=== PATIENT | male | born 1960 | race Caucasian/White ===

== ENCOUNTER 2020-01-08 12:54 | Outpatient (REF) | payer OTHER, SELFPAY ==
--- NOTE | 2020-01-08 13:02 | XR_ITS ---
EXAMINATION: XR CERVICAL SPINE CLINICAL INFORMATION: Cervical pain and paresthesia. COMPARISON: None TECHNIQUE: Five views of the cervical spine were obtained. FINDINGS: There is mild straightening of the cervical lordosis. There is a ventral plate and screws from C4, C5 and C6 vertebra with intervening disc prosthesis for ventral fusion. The rest of the disc heights, vertebral heights and alignment are normal. The neural foramina are mildly narrowed from C3-C4 through C6-C7 disc levels bilaterally secondary to uncovertebral hypertrophic changes. The prevertebral soft tissues are normal. XR/XR cervical spine 4V IMPRESSION: 1. C5-C6 and C6-C7 ventral fusion from ventral plate and screws and disc prosthesis. 2. Mild bilateral narrowing of neural foramina as described above.
== END 2020-01-08 12:55 | disposition home or self-care (01) ==
LOC: HO.XRAY 12:54
PROVIDERS: PCP Internal Medicine; Visit Provider Internal Medicine
DX: M54.2 Cervicalgia (principal); R20.2 Paresthesia of skin
CPT/HCPCS: 72050

== ENCOUNTER → 2020-01-14 15:24 | Outpatient (BNVA) | payer OTHER, SELFPAY | PROVIDERS: PCP Nurse Practitioner; Referring Provider Nurse Practitioner; Visit Provider Physician Assistant | DX: Z01.818 Encounter for other preprocedural examination (principal) | CPT/HCPCS: 99202 ==

== ENCOUNTER 2020-03-22 12:04 | Day surgery (SDC) | payer OTHER, SELFPAY ==
[2020-03-16 13:48] VITALS: BMI 27.3
--- NOTE | 2020-03-19 10:37 | P.CONAN_ITS ---
HPI - Anesthesia Eval Consult details Narrative: 59yo M for Colonoscopy [facility] Past Medical History Medical History Abnormal myocardial perfusion study Atherosclerotic cardiovascular disease Back pain Diabetes HTN (hypertension) Family History Family History Father History of dementia Mother No problems noted. Surgical History Surgical History History of colonoscopy History of operative procedure on lumbosacral spinal structure Hx of cervical spine surgery (~2019) Hx of elbow surgery Social History Social History Are you a primary critical care nurse specialist to a significant other at home: No Do you presently have visiting nurse or other home services: No Alcohol intake: never Smoking Status: Former smoker Tobacco Type: Cigarette Smoking Quit Date: 4 yrs ago Use of substances other than those prescribed or required for medical reasons: No Have you been hit, kicked, punched, or otherwise hurt by someone within the past year? If so, by whom?: No Advance Directives: No Advance Directives Information Provided: No Advance Directives on File: No Recently lost weight without trying: No Meds Allergies Allergy/AdvReac Type Severity Reaction Status Date / Time insulin aspart Allergy Intermediate ITCHING Verified 03/22/20 12:18 [From NOVOLOG U-100 INSULIN ASPART] insulin detemir Allergy Intermediate ITCHING Verified 03/22/20 12:18 [From LEVEMIR U-100 INSULIN] lidocaine Allergy Intermediate Rash Verified 03/22/20 12:18 aspirin [ASA] Allergy Unknown wheezing, Verified 03/22/20 12:18 chest tightness, wheezing tetanus and diphtheria Allergy Unknown SWELLING, Verified 03/22/20 12:18 toxoids REDNESS [TETANUS AND DIPHTHERIA TOXOIDS] Home Medications Medication Instructions Recorded Confirmed Type amlodipine 5 mg tablet 5 mg PO DAILY 01/14/20 03/16/20 History atorvastatin 40 mg tablet 40 mg PO DAILY 01/14/20 03/16/20 History bupropion HCl 300 mg 24 hr tablet, 300 mg PO QAM 01/14/20 03/16/20 History extended release clopidogrel 75 mg tablet 75 mg PO DAILY 01/14/20 03/16/20 History gabapentin 600 mg tablet 600 mg PO DAILY 01/14/20 03/16/20 History insulin glargine 100 unit/mL 25 unit SUBCUT BEDTIME 01/14/20 03/16/20 History subcutaneous solution insulin lispro 100 unit/mL 8 unit SUBCUT TID 01/14/20 03/16/20 History subcutaneous solution losartan 100 mg tablet 100 mg PO DAILY 01/14/20 03/16/20 History metoprolol succinate 25 mg 37.5 mg PO BID 01/14/20 03/16/20 History tablet,extended release 24 hr prazosin 2 mg capsule 2 mg PO BEDTIME 01/14/20 03/16/20 History tramadol 50 mg tablet 50 mg PO TID 01/14/20 03/16/20 History Exam Exam Date and Time: March 19, 2020 1037 Height,Weight and Vital Signs: Height 5 ft 8 in Weight 81.647 kg Narrative Narrative: Per 11/26/19 Cardiology office visit note: EKG 2019: [employer] RBBB, LVH MIBI: Low risk, mild intensity inferobasal, basal inferoseptal and basal inferolateral ischemia. Echo: nml LVEF without any evidence of structural heart disease Coronary CTA: significant calcification in LAD near 1st diagonal takeoff. Suspected less than 50% narrowing. No occlusion. No disease elsewhere Stable CAD. Allergy to asa so med with Plavix. Assessment and Plan Assessment Anesthesia Assessment: Chart Reviewed
[2020-03-22 12:22] VITALS: BP 129/59; PULSE 57; RESP 16; TEMP 36.8; O2SAT 98
[2020-03-22 12:31] LABS: Glucose, Whole Blood 113 mg/dL (60-115)
--- NOTE | 2020-03-22 12:31 | MHC.SHP ---
Pre-Procedural Eval Section B Chief Complaint: screening Relevant Family History (Specify if Yes): No Relevant Social History: None Present Medications: see Short Stay Collaborative assessment Medical History: Significant History (Abnormal myocardial perfusion study Atherosclerotic cardiovascular disease Back pain Diabetes HTN (hypertension)) History of Previous Operations: Relevant previous surgery/procedure and date(s) (History of colonoscopy History of operative procedure on lumbosacral spinal structure Hx of cervical spine surgery (~2019) Hx of elbow surgery) Allergies: Allergies Allergy/AdvReac Type Severity Reaction Status Date / Time insulin aspart Allergy Intermediate ITCHING Verified 03/22/20 12:18 [From NOVOLOG U-100 INSULIN ASPART] insulin detemir Allergy Intermediate ITCHING Verified 03/22/20 12:18 [From LEVEMIR U-100 INSULIN] lidocaine Allergy Intermediate Rash Verified 03/22/20 12:18 aspirin [ASA] Allergy Unknown wheezing, Verified 03/22/20 12:18 chest tightness, wheezing tetanus and diphtheria Allergy Unknown SWELLING, Verified 03/22/20 12:18 toxoids REDNESS [TETANUS AND DIPHTHERIA TOXOIDS] Review of Systems Sugical H&P ROS: Negative: Constitution, Cardiovascular, Respiratory, Neurological, Psychiatric, Hem-Onc, Allergic/Immunologic, Gastrointestinal, Genitourinary, Musculoskeletal, Integumentary, Endocrine and Eyes/Ears/Nose/Throat Exam Surgical H&P Exam: Normal: HEENT, Normal: Heart, Normal: Lungs, Normal: Extremities, Normal: Abdomen, Normal: Skin and Normal: Neurological Plan Diagnosis/Plan: Unchanged I have reviewed the history and physical and performed a pertinent physical examination on my patient. No changes have occurred unless specified.
--- NOTE | 2020-03-22 12:32 | PM.OP ---
Brief Operative Note Date of Service: 03/22/20 Pre-op diagnosis: colon screen Post-op diagnosis: same Procedure: see op note Surgeon: Jacquelyn Barroso MD Anesthesia: MAC Estimated blood loss (mL): 0 Condition: stable Disposition: PACU
--- NOTE | 2020-03-22 12:32 | W.PM.OPN ---
Operative Note Operative Note Date of Service: 03/22/20 Narrative: Operative Information Procedure Description: Colonoscopy COLONOSCOPY Instrument: Olympus variable stiffness pediatric scope 190L Colonoscopy Monitoring: Vital signs and clinical assessment, continuous EKG monitoring, Pulse oximetry, Carbon Dioxide monitoring and blood pressure monitoring were done throughout the procedure. Colon withdrawal time was 13 minutes. Procedure: The patient was placed in the left lateral decubitis position and pre-procedure medications were administered. After a digital rectal examination of the ano-rectum, the video colonoscope was inserted into the rectum and advanced through the colon to the cecum/TI. The colonoscope was slowly withdrawn in a retrograde panoramic fashion and the colon mucosa was carefully examined including a retroflexed view of the rectum. Findings and interventions are described below. Procedure Difficulty:easy Findings: Terminal Ileum-normal Cecum:diminutive polyp lesion 3-5 mm removed with forceps, otherwise normal Ascending Colon: normal Transverse Colon -normal Descending Colon:normal Sigmoid Colon: mild diverticulosis otherwise normal Rectum: Retroflexion with small internal hemorrhoids, grade I Anorectum - normal Colon preparation: [place] Bowel Preparation Scale Right colon; 3 Transverse colon: 3 Left colon; 3 (0 = Unprepared colon segment with mucosa not seen due to solid stool that cannot be cleared. 1 = Portion of mucosa of the colon segment seen, but other areas of the colon segment not well seen due to staining, residual stool and/or opaque liquid. 2 = Minor amount of residual staining, small fragments of stool and/or opaque liquid, but mucosa of colon segment seen well. 3 = Entire mucosa of colon segment seen well with no residual staining, small fragments of stool or opaque liquid) Impression and Post Procedure Diagnosis: polyp internal hemorrhoids diverticular disease Plan: High fiber diet leaflet Avoid straining at stool, epsom salts and sitz bath, anusol supps or cream prn Repeat Colonoscopy in 7-10 years or earlier if clinically indicated Above findings were reviewed with the patient and relevant handouts were provided if indicated.
--- NOTE | 2020-03-22 12:36 | HO.ANESPROP2 ---
[facility] Past Medical History Medical History Abnormal myocardial perfusion study Atherosclerotic cardiovascular disease Back pain Diabetes HTN (hypertension) Family History Family History Father History of dementia Mother No problems noted. Surgical History Surgical History History of colonoscopy History of operative procedure on lumbosacral spinal structure Hx of cervical spine surgery (~2019) Hx of elbow surgery Social History Social History Are you a primary lawn care professional to a significant other at home: No Do you presently have visiting nurse or other home services: No Alcohol intake: never Smoking Status: Former smoker Tobacco Type: Cigarette Smoking Quit Date: 4 yrs ago Use of substances other than those prescribed or required for medical reasons: No Have you been hit, kicked, punched, or otherwise hurt by someone within the past year? If so, by whom?: No Advance Directives: No Advance Directives Information Provided: No Advance Directives on File: No Recently lost weight without trying: No Meds Allergies Allergy/AdvReac Type Severity Reaction Status Date / Time insulin aspart Allergy Intermediate ITCHING Verified 03/22/20 12:18 [From NOVOLOG U-100 INSULIN ASPART] insulin detemir Allergy Intermediate ITCHING Verified 03/22/20 12:18 [From LEVEMIR U-100 INSULIN] lidocaine Allergy Intermediate Rash Verified 03/22/20 12:18 aspirin [ASA] Allergy Unknown wheezing, Verified 03/22/20 12:18 chest tightness, wheezing tetanus and diphtheria Allergy Unknown SWELLING, Verified 03/22/20 12:18 toxoids REDNESS [TETANUS AND DIPHTHERIA TOXOIDS] Home Medications Medication Instructions Recorded Confirmed Type amlodipine 5 mg tablet 5 mg PO DAILY 01/14/20 03/16/20 History atorvastatin 40 mg tablet 40 mg PO DAILY 01/14/20 03/16/20 History bupropion HCl 300 mg 24 hr tablet, 300 mg PO QAM 01/14/20 03/16/20 History extended release clopidogrel 75 mg tablet 75 mg PO DAILY 01/14/20 03/16/20 History gabapentin 600 mg tablet 600 mg PO DAILY 01/14/20 03/16/20 History insulin glargine 100 unit/mL 25 unit SUBCUT BEDTIME 01/14/20 03/16/20 History subcutaneous solution insulin lispro 100 unit/mL 8 unit SUBCUT TID 01/14/20 03/16/20 History subcutaneous solution losartan 100 mg tablet 100 mg PO DAILY 01/14/20 03/16/20 History metoprolol succinate 25 mg 37.5 mg PO BID 01/14/20 03/16/20 History tablet,extended release 24 hr prazosin 2 mg capsule 2 mg PO BEDTIME 01/14/20 03/16/20 History tramadol 50 mg tablet 50 mg PO TID 01/14/20 03/16/20 History Exam Exam Date and Time: March 22, 2020 1236 Height,Weight and Vital Signs: Height 5 ft 8 in Weight 81.647 kg Last Vital Signs Temp 98.2 F 03/22/20 12:22 Pulse 57 03/22/20 12:22 Resp 16 03/22/20 12:22 BP 129/59 L 03/22/20 12:22 Pulse Ox 98 03/22/20 12:22 Pertinent Lab Results Pertinent Lab Results: Laboratory Tests 03/22/20 12:28 POC Glucose 113 Airway Mallampati Class: II TM Dist: >3cm Neck ROM: Full Heart: RRR Lungs: CTA
[2020-03-22] MEDS: Lactated Ringers 1,000 ML 100 ML IVCONT (12:37)
[2020-03-22 13:23] VITALS: BP 102/44; PULSE 60; RESP 16; TEMP 36.7; O2SAT 96
--- NOTE | 2020-03-22 13:25 | HO.POSTANES ---
Post Anesthesia Evaluation Post Anesthesia Evaluation Vital Signs: Vital Signs Temp Pulse Resp BP Pulse Ox 03/22/20 12:22 98.2 F 57 16 129/59 L 98 Anesthesia: Monitored Mental Status: Awake Pain Control: Satisfactory Nausea/Vomiting: None Hydration: Adequate Anesthesia-Related Issues: No Anes. Related Issues
== END 2020-03-22 14:21 | disposition home or self-care (01) ==
PROVIDERS: PCP Internal Medicine; Visit Provider Internal Medicine Gastroenterology
PROC: 0DJD8ZZ Inspection of Lower Intestinal Tract, Via Natural or Artificial Opening Endoscopic (ICD-10-PCS; CPT 45378; principal; 2020-03-22 13:30)
DX: Z12.11 Encounter for screening for malignant neoplasm of colon (principal); D12.0 Benign neoplasm of cecum; K57.30 Diverticulosis of large intestine without perforation or abscess without bleeding; K64.0 First degree hemorrhoids; I10 Essential (primary) hypertension; I25.10 Atherosclerotic heart disease of native coronary artery without angina pectoris; E11.9 Type 2 diabetes mellitus without complications; Z79.4 Long term (current) use of insulin; Z79.899 Other long term (current) drug therapy; Z87.891 Personal history of nicotine dependence; Z88.7 Allergy status to serum and vaccine
CPT/HCPCS: 45380; 82947; 88305

== ENCOUNTER → 2020-05-31 09:03 | Outpatient (BNVA) | payer OTHER, SELFPAY | PROVIDERS: PCP Internal Medicine; Visit Provider Internal Medicine | DX: I25.10 Atherosclerotic heart disease of native coronary artery without angina pectoris (principal); I10 Essential (primary) hypertension; E11.8 Type 2 diabetes mellitus with unspecified complications | CPT/HCPCS: 93005; 99212 ==

== ENCOUNTER → 2020-12-06 08:55 | Outpatient (BNVA) | payer OTHER, SELFPAY | PROVIDERS: PCP Internal Medicine; Referring Provider Internal Medicine; Visit Provider Internal Medicine | DX: I25.10 Atherosclerotic heart disease of native coronary artery without angina pectoris (principal); I10 Essential (primary) hypertension; E11.8 Type 2 diabetes mellitus with unspecified complications | CPT/HCPCS: 99212 ==

== ENCOUNTER 2021-06-22 08:00 | Outpatient (RCR) | payer OTHER, SELFPAY | END 2021-06-23 11:08 | disposition home or self-care (01) | LOC: HO.PTCHIC 08:00 | PROVIDERS: PCP Internal Medicine; Visit Provider Internal Medicine | DX: M54.32 Sciatica, left side (principal) | CPT/HCPCS: 97110; 97140; 97162 ==

== ENCOUNTER → 2021-06-23 09:43 | Outpatient (BNVA) | payer OTHER, SELFPAY | PROVIDERS: PCP Internal Medicine; Referring Provider Internal Medicine; Visit Provider Internal Medicine | DX: I25.10 Atherosclerotic heart disease of native coronary artery without angina pectoris (principal); E11.9 Type 2 diabetes mellitus without complications; I10 Essential (primary) hypertension; Z79.02 Long term (current) use of antithrombotics/antiplatelets; Z79.4 Long term (current) use of insulin; Z79.899 Other long term (current) drug therapy | CPT/HCPCS: 93005; 99212 ==

== ENCOUNTER → 2021-08-29 13:50 | Outpatient (BNVA) | payer OTHER, SELFPAY | PROVIDERS: PCP Internal Medicine; Visit Provider Anesthesiology | DX: M46.1 Sacroiliitis, not elsewhere classified (principal); M53.3 Sacrococcygeal disorders, not elsewhere classified; M47.817 Spondylosis without myelopathy or radiculopathy, lumbosacral region; G89.4 Chronic pain syndrome | CPT/HCPCS: 99202 ==

== ENCOUNTER 2021-09-27 06:07 | Outpatient (REF) | payer OTHER, SELFPAY ==
--- NOTE | ~2021-09-27 | FL_ITS ---
EXAMINATION: XR FLUOROSCOPY WITH IMAGES CLINICAL INFORMATION: Left SI joint injection. Sacroiliitis. COMPARISON: None. TECHNIQUE: Fluoroscopy performed by Dr. Sharan Carrillo. Fluoroscopy time: 0.1 minute. Cumulative Dose: 4.94 mGy. DAP: 1.34 Gy-cm2. Images: 1. FINDINGS: There is a radiopaque needle projecting over the left sacroiliac joint with expansion of contrast in this region. FL/FL guidance in treatment room IMPRESSION: Fluoroscopic guidance for left sacroiliac joint injection. Please refer to procedural report for further information.
== END 2021-09-27 06:08 | disposition home or self-care (01) ==
LOC: HO.RADIR 06:07
PROVIDERS: Visit Provider Anesthesiology
DX: M46.1 Sacroiliitis, not elsewhere classified (principal); M53.3 Sacrococcygeal disorders, not elsewhere classified; M47.817 Spondylosis without myelopathy or radiculopathy, lumbosacral region; G89.4 Chronic pain syndrome
CPT/HCPCS: 27096; J3300

== ENCOUNTER → 2021-09-29 08:02 | Outpatient (BNVA) | payer OTHER, SELFPAY | PROVIDERS: PCP Internal Medicine; Visit Provider Anesthesiology | DX: M46.1 Sacroiliitis, not elsewhere classified (principal); M53.3 Sacrococcygeal disorders, not elsewhere classified; M47.817 Spondylosis without myelopathy or radiculopathy, lumbosacral region; G89.4 Chronic pain syndrome | CPT/HCPCS: Q3014 ==

== ENCOUNTER 2021-10-25 06:25 | Outpatient (REF) | payer OTHER, SELFPAY ==
--- NOTE | ~2021-10-25 | FL_ITS ---
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 COMPARISON: MRI of the lumbar spine dated 08/03/2021. TECHNIQUE: Fluoroscopy performed by Dr. Carrillo. Fluoroscopy time: 0.4 minutes. Cumulative Dose: 7.34 mGy. DAP: 2.0 Gy-cm2. Images: 4. FL/FL guidance in treatment room FINDINGS/IMPRESSION: Final images show needles in place on the right at the level the facets at L3, L4 and L5. Please refer to the procedure report for more detailed findings.
== END 2021-10-25 06:26 | disposition home or self-care (01) ==
LOC: HO.RADIR 06:25
PROVIDERS: Visit Provider Anesthesiology
DX: M47.816 Spondylosis without myelopathy or radiculopathy, lumbar region (principal); M46.1 Sacroiliitis, not elsewhere classified; M53.3 Sacrococcygeal disorders, not elsewhere classified; G89.4 Chronic pain syndrome
CPT/HCPCS: 64493; 64494; 64495

== ENCOUNTER → 2021-10-27 10:25 | Outpatient (BNVA) | payer OTHER, SELFPAY | PROVIDERS: PCP Internal Medicine; Visit Provider Anesthesiology | DX: M46.1 Sacroiliitis, not elsewhere classified (principal); M53.3 Sacrococcygeal disorders, not elsewhere classified; M47.817 Spondylosis without myelopathy or radiculopathy, lumbosacral region; G89.4 Chronic pain syndrome | CPT/HCPCS: Q3014 ==

== ENCOUNTER 2021-11-16 09:17 | Outpatient (REF) | payer OTHER, SELFPAY ==
[2021-11-16 09:55] LABS: Binax Internal Control QC Valid; Binax Now Covid-19 Ag Positive (Negative)
== END 2021-11-16 09:18 | disposition home or self-care (01) ==
LOC: HO.HMGCLDS 09:17
PROVIDERS: PCP Internal Medicine; Visit Provider Nurse Practitioner Family
DX: R09.81 Nasal congestion (principal); Z20.822 Contact with and (suspected) exposure to COVID-19
CPT/HCPCS: 87811; C9803

== ENCOUNTER 2021-12-27 09:13 | Day surgery (SDC) | payer OTHER, SELFPAY ==
--- NOTE | ~2021-12-27 | FL_ITS ---
EXAMINATION: XR FLUOROSCOPY WITH IMAGES CLINICAL INFORMATION: Lumbar L4-L5 temporary PCN advanced COMPARISON: October 25, 2021 TECHNIQUE: Fluoroscopy performed by Dr. Sharan Carrillo. Fluoroscopy time: 0.1 minutes. Cumulative Dose: 3.78 mGy. DAP: 1.03 Gycm2. Images: 1. FINDINGS: Wire is seen overlying the left L5 vertebral body. FL/FL guidance in OR IMPRESSION: Intraoperative fluoroscopy for pain management procedure.
[2021-12-27 09:40] VITALS: BMI 27.3
[2021-12-27 09:47] VITALS: BP 127/103; PULSE 52; RESP 16; TEMP 37; O2SAT 96
--- NOTE | 2021-12-27 09:47 | PC.NURSE ---
patient own glucometer states 92. asymptomatic but feels it will start to drop more so tammy netta was given. states he is symptomatic when its around 80.
--- NOTE | 2021-12-27 11:28 | P.HPSUR_ITS ---
Pre-Procedural Eval Section A Date of Service: 12/27/21 The patient is an INPATIENT: No Changes since office visit: Yes Changes in Medication and Yes Patient answered all questions The History & Physical has been completed within 30 days and I have reviewed it.: No Section B Chief Complaint: Spondylosis without myelopathy or radiculopathy, l Details of Present Illness: as above Relevant Family History (Specify if Yes): No Relevant Social History: None Present Medications: None Medical History: No relevant PMH History of Previous Operations: No relevant previous surgery Allergies: Allergies Allergy/AdvReac Type Severity Reaction Status Date / Time insulin aspart Allergy Intermediate ITCHING Verified 11/16/21 08:35 [From NOVOLOG U-100 INSULIN ASPART] insulin detemir Allergy Intermediate ITCHING Verified 11/16/21 08:35 [From LEVEMIR U-100 INSULIN] lidocaine Allergy Intermediate Rash Verified 11/16/21 08:35 aspirin [ASA] Allergy Unknown wheezing, Verified 11/16/21 08:35 chest tightness, wheezing tetanus and diphtheria Allergy Unknown SWELLING, Verified 11/16/21 08:35 toxoids REDNESS [TETANUS AND DIPHTHERIA TOXOIDS] Review of Systems Sugical H&P ROS: Negative: Constitution, Cardiovascular, Respiratory, Neurological, Psychiatric, Hem-Onc, Allergic/Immunologic, Gastrointestinal, Genitourinary, Musculoskeletal, Integumentary, Endocrine and Eyes/Ears/Nose/Throat Exam Surgical H&P Exam: Normal: HEENT, Normal: Heart, Normal: Lungs, Normal: Ex tremities, Normal: Abdomen, Normal: Skin and Normal: Neurological Plan Diagnosis/Plan: Unchanged I have reviewed the history and physical and performed a pertinent physical examination on my patient. No changes have occurred unless specified.
--- NOTE | 2021-12-27 12:06 | PM.OP ---
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
--- NOTE | 2021-12-27 12:13 | P.OP_ITS ---
Operative Note Operative Note Date of Service: 12/27/21 Narrative: ?Percutaneous implantation of peripheral nerve stimulation Sprint system. After the risks, benefits and alternatives were discussed with the patient and informed consent was obtained, patient was placed in the prone position and padded to foster comfort. Time out was performed delineating correct site and side of the procedure , name and of the patient, patient participated in time out procedure. The patient decided to start his treatment with right side stimulation where his pain is most severe. Sterily draped C-arm was brought over the operating field and clear picture of the L5 lamina on the left was delineated on the screen. The upper central portion of the lamina was chosen as a target of the needle tip incertion . After identifying and marking the intended target, the skin around the planned entry point and the subcutaneous tissues were injected with local anesthetic forming skin wheal.. A percutaneous sleeve and stimulating probe lead introduction system were assemb led, inserted and advanced through the skin wheal to the? point of interest under C-arm view in tunnel vision fashion, the introducer needle was delivered to a location in proximity to the nerve. Multiple stimulation parameters were used to deliver stimulation to the? nerve in concert with stimulating at multiple positions around the nerve. Nerve target acquisition was confirmed noting generation of? in the? corresponding to the nerve being stimulated. Various electrical parameter combinations were tested, and the lead location was adjusted (physically relocated) until the patient indicated? overlapping the distribution of the patient?s typical region of pain. The stimulating probe was removed from the introducer and a percutaneous lead was guided through the needle and delivered to a location in similar proximity to the nerve. Final location was verified with electrical stimulation. The introducer needle was removed, and the exposed end of the percutaneous lead was attached to an exte rnal stimulator unit. Various electrical parameter combinations were again tested until the patient indicated paresthesia or muscle tension overlapping the distribution of the patient?s typical region of pain. After confirming that lead impedance was in the normal range, the external unit was detached, the needle was removed, and the lead was anchored at the skin. The lead was threaded into the connector block and electrical continuity and desired patient response was confirmed. The connector block was attached to the external stimulator unit. The site was covered with a sterile occlusive dressing and an? image was taken to document final placement. Upon completion of the procedure the patient was taken outside the OR where he recovered uneventfully he went home without immediate complications.
[2021-12-27 12:16] VITALS: BP 136/66; PULSE 57; RESP 20; TEMP 36.1; O2SAT 97
== END 2021-12-27 12:49 | disposition home or self-care (01) ==
PROVIDERS: PCP Internal Medicine; Visit Provider Anesthesiology
PROC: (CPT 64555; principal; 2021-12-27 11:00)
DX: M47.816 Spondylosis without myelopathy or radiculopathy, lumbar region (principal); G89.4 Chronic pain syndrome; M53.3 Sacrococcygeal disorders, not elsewhere classified; M46.1 Sacroiliitis, not elsewhere classified; I11.9 Hypertensive heart disease without heart failure; E11.9 Type 2 diabetes mellitus without complications; Z88.8 Allergy status to other drugs, medicaments and biological substances; Z98.890 Other specified postprocedural states; Z87.891 Personal history of nicotine dependence; Z79.4 Long term (current) use of insulin; Z79.899 Other long term (current) drug therapy
CPT/HCPCS: 64555; C1778; J0690; J2795

== ENCOUNTER → 2022-01-02 11:43 | Outpatient (BNVA) | payer OTHER, SELFPAY | PROVIDERS: PCP Internal Medicine; Visit Provider Anesthesiology | DX: M46.1 Sacroiliitis, not elsewhere classified (principal); M53.3 Sacrococcygeal disorders, not elsewhere classified; M47.817 Spondylosis without myelopathy or radiculopathy, lumbosacral region; G89.4 Chronic pain syndrome | CPT/HCPCS: 99212 ==

== ENCOUNTER → 2022-03-01 10:01 | Outpatient (BNVA) | payer OTHER, SELFPAY | PROVIDERS: PCP Internal Medicine; Visit Provider Anesthesiology | DX: M46.1 Sacroiliitis, not elsewhere classified (principal); M53.3 Sacrococcygeal disorders, not elsewhere classified; M47.817 Spondylosis without myelopathy or radiculopathy, lumbosacral region; G89.4 Chronic pain syndrome | CPT/HCPCS: 99212 ==

== ENCOUNTER 2022-05-31 09:14 | Outpatient (REF) | payer OTHER, SELFPAY ==
--- NOTE | ~2022-05-31 | FL_ITS ---
EXAMINATION: FL UPPER GI SERIES CLINICAL INFORMATION: Dysphagia with solids cervical region. Patient notes symptoms since cervical fusion. COMPARISON: None TECHNIQUE: Upper GI series is performed using fluoroscopic evaluation in addition to multiple fluoroscopic spot views. The patient is imaged both upright and prone and using both thick and thin barium sulfate along with effervescent granules. Barium pill challenge also performed. Cine fluoroscopy also performed for cervical esophagus. Fluoroscopy time: 2.0 minutes DAP: 20.36 Gycm2 Fluoroscopic spot images: 42 (this includes cine fluoroscopy). FINDINGS: Timber Estimator view showed no gaseous dilatation of bowel or abnormal collections of gas. There is a small electronic device overlying the right lateral abdomen consistent with a glucose monitor. There has been prior cervical fusion C4-C6 with interbody bone grafts. The swallowing appears normal. No nasopharyngeal or laryngeal penetration or aspiration. No cervical web or diverticulum. No cervical achalasia. There is prompt passage of barium pill from mouth to stomach without delay. The thoracic esophagus shows normal motility. There is no ulceration or stricture or mucosal abnormality. With the prone Valsalva maneuver, there is some physiologic herniation at the esophagogastric junction but without overt hernia. Gastroesophageal reflux to the proximal thoracic esophagus is demonstrated during the water siphon test. Stomach shows borderline thickening of folds gastric fundus and proximal body. There is no nodularity or polyp or ulcer crater. No gastric outlet obstruction. The duodenal bulb is pliable. No ulceration or scarring. FL/FL upper GI series IMPRESSION: -Fluoroscopic evaluation swallowing unremarkable. No cervical web or diverticulum or achalasia. -Mild physiologic herniation esophagogastric junction during prone Valsalva maneuver. No overt hernia. -Gastroesophageal reflux during water siphon test to proximal thoracic esophagus. -Mild nonspecific gastric fold thickening fundus and proximal body. No polyp or ulcer crater.
== END 2022-05-31 09:15 | disposition home or self-care (01) ==
LOC: HO.XRAY 09:14
PROVIDERS: PCP Internal Medicine; Visit Provider Internal Medicine
DX: R13.11 Dysphagia, oral phase (principal)
CPT/HCPCS: 74240

== ENCOUNTER → 2022-06-28 09:42 | Outpatient (BNVA) | payer OTHER, SELFPAY | PROVIDERS: PCP Internal Medicine; Referring Provider Internal Medicine; Visit Provider Internal Medicine | DX: I25.10 Atherosclerotic heart disease of native coronary artery without angina pectoris (principal); I10 Essential (primary) hypertension; E11.8 Type 2 diabetes mellitus with unspecified complications | CPT/HCPCS: 93005; 99212 ==

== ENCOUNTER 2022-10-01 00:28 | Emergency (ER) | payer OTHER, SELFPAY ==
--- NOTE | ~2022-10-01 | XR_ITS ---
EXAMINATION: XR HAND, LEFT CLINICAL INFORMATION: Injury COMPARISON: None available. TECHNIQUE: PA, lateral, and oblique views of the left hand. FINDINGS: Fracture involving the mid to distal aspect of the distal phalanx of the fourth digit. Mildly comminuted. Not significantly displaced XR/XR hand LT 2V IMPRESSION: Fracture distal phalanx fourth digit
[2022-10-01 00:33] VITALS: BP 124/50; PULSE 62; RESP 16; TEMP 36.1; O2SAT 98; BMI 26.6
--- NOTE | 2022-10-01 01:07 | ED.EXTPRO ---
HPI - Extremity Problem General Chief complaint: Extremity Injury, Upper Stated complaint: finger inj, hit with a hammer Time Seen by Provider: 10/01/22 00:53 Source: patient Mode of arrival: ambulatory Limitations: no limitations History of Present Illness HPI Narrative: 62-year-old male who presents emergency department for evaluation of injury to his left ring finger. Patient states that he was using a - below hammer when he accidentally struck his left ring finger. He states he developed immediate pain. The injury occurred at 14:30 hours. Since then he has had increased pain with increased swelling and ecchymosis. He concerned about the swelling to his finger in the pain so he came to the emergency department for evaluation. Patient takes tramadol for chronic pain he states that this was not relieving his pain. He also took Tylenol with no relief. Related Data Home Medications Medication Instructions Recorded Confirmed atorvastatin 40 mg tablet (Lipitor) 40 mg PO DAILY 01/14/20 06/28/22 bupropion HCl 300 mg 24 hr tablet, 300 mg PO QAM 01/14/20 06/28/22 extended release (Wellbutrin XL) clopidogrel 75 mg tablet (Plavix) 75 mg PO DAILY 01/14/20 06/28/22 insulin glargine 100 unit/mL 25 unit subcut BEDTIME 01/14/20 06/28/22 subcutaneous solution (Lantus U-100 Insulin) insulin lispro 100 unit/mL 8 unit subcut TID 01/14/20 06/28/22 subcutaneous solution (Humalog U-100 Insulin) losartan 100 mg tablet 100 mg PO DAILY 01/14/20 06/28/22 prazosin 2 mg capsule 2 mg PO BEDTIME 01/14/20 06/28/22 tramadol 50 mg tablet 50 mg PO TID 01/14/20 06/28/22 metoprolol tartrate 25 mg tablet 37.5 mg PO BID 05/31/20 06/28/22 vilazodone 40 mg tablet 40 mg PO DAILY 05/31/20 06/28/22 bupropion HCl 150 mg 24 hr tablet, 150 mg PO QAM 09/27/21 06/28/22 extended release ferrous sulfate 325 mg (65 mg 325 mg PO Q OTHER DAY 09/27/21 06/28/22 iron) tablet (FeroSul) ketotifen fumarate 0.025 % (0.035 0 drp ophthalmic (eye) 09/27/21 06/28/22 %) eye drops prazosin 1 mg capsule 1 mg PO BEDTIME 09/27/21 06/28/22 amitriptyline 10 mg tablet 10 mg PO 06/28/22 06/28/22 gabapentin 100 mg capsule 100 mg PO TID 06/28/22 06/28/22 valacyclovir 500 mg tablet 500 mg PO BID 06/28/22 06/28/22 Previous Rx's Medication Instructions Recorded amlodipine 5 mg tablet 5 mg PO QAM #90 tabs 04/28/22 oxycodone 5 mg tablet 5 mg PO Q4H PRN pain #14 tabs 10/01/22 Allergies Allergy/AdvReac Type Severity Reaction Status Date / Time insulin aspart Allergy Intermediate ITCHING Verified 06/28/22 09:48 [From NOVOLOG U-100 INSULIN ASPART] insulin detemir Allergy Intermediate ITCHING Verified 06/28/22 09:48 [From LEVEMIR U-100 INSULIN] lidocaine Allergy Intermediate Rash Verified 06/28/22 09:48 aspirin [ASA] Allergy Unknown wheezing, Verified 06/28/22 09:48 chest tightness, wheezing tetanus and diphtheria Allergy Unknown SWELLING, Verified 06/28/22 09:48 toxoids REDNESS [TETANUS AND DIPHTHERIA TOXOIDS] Review of Systems Review of Systems: Yes all other systems are reviewed and are negative [facility] Past Medical History Medical History Abnormal myocardial perfusion study Atherosclerotic cardiovascular disease Back pain Diabetes Essential hypertension HTN (hypertension) Type 2 diabetes mellitus with unspecified complications Surgical History History of colonoscopy History of operative procedure on lumbosacral spinal structure Hx of cervical spine surgery (~2019) Hx of elbow surgery Family History Family History Father History of dementia Mother No problems noted. Social History Social History Are you a primary urgent care physician to a significant other at home: No Do you presently have visiting nurse or other home services: No Alcohol intake: never Patient Tobacco Use Status: Former Tobacco user Physical Exam Vital Signs: Vital Signs: Last Vital Signs Temp 97.0 F 10/01/22 00:33 Pulse 62 10/01/22 00:33 Resp 16 10/01/22 00:33 BP 124/50 L 10/01/22 00:33 Pulse Ox 98 10/01/22 00:33 O2 Del Method Room Air 10/01/22 00:33 BMI result Body Mass Index 26.6 Vital signs were normal General: Awake, alert, male patient, pleasant, cooperative in no distress Left hand: The tip of the left ring finger is ecchymotic with significant soft tissue swelling, there is a subungual hematoma, the patient has normal range of motion of the finger. No other fingers are involved. Medical Decision Making Medical Decision Making MDM Narrative: 62-year-old male who presents emergency department for evaluation of crush injury after accidentally striking his left ring finger with a heavy hammer at 14:30 hours. Exam did reveal significant soft tissue swelling, ecchymosis and subungual hematoma to the tip of the distal phalanx. X-rays did reveal a comminuted tuft fracture. The patient's middle, ring and pinky fingers were jessica-taped and an ortho glass splint apply my held in place with an Speedy wrap. After the splint was applied I did re-evaluate the patient his injured fingers facial immobilized and neurovascularly intact. Patient was advised to take Tylenol for pain and for pain not relieved by Tylenol he was prescribed oxycodone. He is advised to stop taking his tramadol wall taking oxycodone. Patient was advised to follow-up with the orthopedic surgeons for re-evaluation. Differential Diagnosis Differential Diagnoses: The differential diagnosis associated with the presentation includes Differential includes but is not limited to finger fracture, crush injury, contusion Independent Interpretation I performed an independent interpretation of an: Plain X-Ray Interpretation: My independent interpretation of the patient's left hand x-rays as follows: Comminuted fracture of the tuft of the distal phalanx of the left ring finger Radiology Impression Discussion of test interpretation with radiology: I have reviewed the radiologist's reading. Radiologist Impression: XR hand LT 2V Fracture involving the mid to distal aspect of the distal phalanx of the fourth digit. Mildly comminuted. Not significantly displaced IMPRESSION: Fracture distal phalanx fourth digit Dictated By:Mcconnell,Walter T MDSigned Discharge Plan Discharge Clinical Impression: Closed fracture of tuft of distal phalanx of left ring finger Patient Disposition: Home, Self-Care Instructions: Finger Fracture (ED) Additional Instructions: You broke/fracture the tip (tuft) of your left ring finger. Keep the splint on until you are re-evaluated by the orthopedic providers. Keep your hand elevated and apply ice for 15 minutes 4 to 6 times a day the next 3-4 days. This will decrease the swelling in your finger and help with the pain. Take Tylenol (acetaminophen) 500 mg pills, 2 pills every 6 hours as needed for pain. For pain not relieved byTylenol take oxycodone 5 mg pills, 1 pill every 4 hours as needed for pain. Do not drive or work while taking this medication since they can cause sleepiness. Oxycodone is a narcotic medication that can be addicting. If you are concerned about addiction you can ask the pharmacist for less pills or do not get this prescription filled. While your taking oxycodone do not take your tramadol Follow-up with your doctor in 2 days. Please return to the emergency department if your symptoms get worse or if you develop any symptoms that are concerning to you. Prescriptions: New oxycodone 5 mg tablet 5 mg PO Q4H PRN (Reason: pain) Qty: 14 0RF Rx Instructions: Patient may request partial fill; Partial Fill upon patient request. No Action amlodipine 5 mg tablet 5 mg PO QAM Qty: 90 3RF Viibryd 40 mg tablet 40 mg PO DAILY metoprolol tartrate 25 mg tablet 37.5 mg PO BID gabapentin 100 mg capsule 100 mg PO TID clopidogrel [Plavix] 75 mg tablet 75 mg PO DAILY losartan 100 mg tablet 100 mg PO DAILY prazosin 2 mg capsule 2 mg PO BEDTIME atorvastatin [Lipitor] 40 mg tablet 40 mg PO DAILY insulin lispro [Humalog U-100 Insulin] 100 unit/mL solution 8 unit subcut TID bupropion HCl [Wellbutrin XL] 300 mg tablet extended release 24 hr 300 mg PO QAM Lantus U-100 Insulin 100 unit/mL solution 25 unit subcut BEDTIME tramadol 50 mg tablet 50 mg PO TID bupropion HCl 150 mg tablet extended release 24 hr 150 mg PO QAM ferrous sulfate [FeroSul] 325 mg (65 mg iron) tablet 325 mg PO Q OTHER DAY prazosin 1 mg capsule 1 mg PO BEDTIME ketotifen fumarate 0.025 % (0.035 %) drops 0 drp ophthalmic (eye) amitriptyline 10 mg tablet 10 mg PO valacyclovir 500 mg tablet 500 mg PO BID Referrals: Audrey Nino MD [Physician] - 1 week (Comminuted fracture tuft of the distal phalanx of the left ring finger)
== END 2022-10-01 01:36 | disposition home or self-care (01) ==
PROVIDERS: Emergency Provider Emergency Medicine Emergency Medical Services; PCP Internal Medicine
DX: S62.635A Displaced fracture of distal phalanx of left ring finger, initial encounter for closed fracture (principal); Y29.XXXA Contact with blunt object, undetermined intent, initial encounter; Y93.9 Activity, unspecified; Y92.9 Unspecified place or not applicable; Y99.9 Unspecified external cause status; Z79.899 Other long term (current) drug therapy
CPT/HCPCS: 29130; 73120; 99284

== ENCOUNTER 2022-10-04 09:56 | Outpatient (REF) | payer OTHER, SELFPAY ==
[2022-10-04 14:50] LABS: MANUAL DIFF FLAG NO
[2022-10-04 14:57] LABS: Basophils Absolute Auto 0.1 X10*3/uL (0.0-0.2); Basophils Percent Auto 1.9 % (0-2); Eosinophils Absolute Auto 0.3 X10*3/uL (0.0-0.4); Hematocrit 36.7 % (42.0-52.0); Hemoglobin 12.3 g/dl (14.0-18.0); Imm Gran Abs Auto 0.01 X10*3/uL (0.00-0.03); Imm Gran Pct Auto 0.2 % (0.0-0.4); Immature Retic Fraction 7.5 % (2.3-13.4); Lymphocytes Absolute Auto 1.2 X10*3/uL (1.2-4.9); Lymphocytes Percent Auto 21.7 % (20-40); Mean Corpuscular HGB Conc 33.5 g/dl (31.0-36.0); Mean Corpuscular Hemoglobin 31.4 pg (27.0-33.0); Mean Corpuscular Volume 93.6 fL (80.0-98.0); Monocytes Absolute Auto 0.4 X10*3/uL (0.1-1.2); Monocytes Percent Auto 7.5 % (2-11); Neutrophils Absolute Auto 3.4 x10*3/uL (2.0-8.3); Neutrophils Percent Auto 62.7 % (45-73); Platelet Count 242 X10*3/uL (160-400); Red Blood Count 3.92 X10*6/uL (4.60-5.80); Red Cell Distribution Width 11.9 % (11.0-16.0); Retic HGB Equivalent 36.3 pg (30.0-35.0); Reticulocyte Percent 1.4 % (0.5-1.8); Reticulocytes Absolute 0.055 X10*6/uL (0.026-0.095); White Blood Count 5.3 X10*3/uL (4.8-10.8)
[2022-10-04 16:05] LABS: Iron 116 mcg/dL (45-160); Percent Iron Saturation 45 % (15-50); Total Iron Binding Capacity 257 mcg/dL (228-428); Unsaturated Iron Binding 141 ug/dL
[2022-10-04 16:27] LABS: Ferritin 168 ng/mL (20-250)
== END 2022-10-04 09:57 | disposition home or self-care (01) ==
LOC: HO.CHCLDS 09:56
PROVIDERS: Visit Provider Internal Medicine
DX: D64.9 Anemia, unspecified (principal)
CPT/HCPCS: 36415; 82728; 83540; 85025; 85045

== ENCOUNTER 2022-10-11 10:43 | Outpatient (AMB) | payer OTHER, SELFPAY ==
--- NOTE | 2022-10-11 11:01 | A.OFFVIS_ITS ---
Intake Vital Signs 10/11/22 11:10 Height 5 ft 8 in Weight 175 lb BMI 26.6 Intake Visit Reasons: FC- lt ring finger tuft fx Intake Note: Christian is a 62 year old right hand dominant male who presents today for an ER follow up of left ring finger fx, DOI 09/30/22. Patient reports hitting his finger with a hammer, he presented to [facility] where xrays were taken and placed in a splint. Currently discomfort/pain with accidentally bumping his hand. He continues to have bruising at the tip of finger. He does not feel numbness or tingling in finger but states hx of carpal tunnel in both hands. Allergies insulin aspart [From NOVOLOG U-100 INSULIN ASPART] Allergy (Intermediate, Verified 10/11/22 11:03) ITCHING insulin detemir [From LEVEMIR U-100 INSULIN] Allergy (Intermediate, Verified 10/11/22 11:03) ITCHING lidocaine Allergy (Intermediate, Verified 10/11/22 11:03) Rash aspirin [ASA] Allergy (Unknown, Verified 10/11/22 11:03) wheezing, chest tightness, wheezing tetanus and diphtheria toxoids [TETANUS AND DIPHTHERIA TOXOIDS] Allergy (Unknown, Verified 10/11/22 11:03) SWELLING, REDNESS HPI FC- lt ring finger tuft fx HPI Details 62-year-old right hand dominant male who presents to the office today for an ER follow-up of left ring finger injury s/p hitting his finger with hammer, 09/30/22. He was seen at ED where x-rays preformed and he was placed in a splint. He states he has pain and discomfort with accidently bumping his hand. He continues to have bruising at the tip of his finger. he denies any numbness or tingling. He has a history of CTS on bilateral hands. [facility] Medical History Abnormal myocardial perfusion study Atherosclerotic cardiovascular disease Back pain Diabetes Essential hypertension HTN (hypertension) Type 2 diabetes mellitus with unspecified complications Surgical History History of colonoscopy History of operative procedure on lumbosacral spinal structure Hx of cervical spine surgery (~2019) Hx of elbow surgery Family History Father History of dementia Mother No problems noted. 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 He does have a subungual hematoma. There is no open wound or laceration. He can fully flex and extend the finger. NVI. Office Procedures Fracture Care Fracture Billing Code: Fracture Billing Code Results Reviewed Results Reviewed: X-rays of the left hand obtained on October 01 at ED show a non-displaced tuft fracture. Assessment & Plan Assessment & Plan (1) Closed fracture of tuft of distal phalanx of left ring finger: Code(s): S62.635A - Displaced fracture of distal phalanx of left ring finger, initial encounter for closed fracture Plan He can increase activity as tolerated. I did give him a finger splint to wear for comfort to avoid any type of repetitive impact to that finger to allow for healing. He does not need to follow-up unless symptoms persist or worsen. He can see us back as needed. Patient Instructions: Scribed for Juan Ferro PA-C, by Radames Osborne biomedical manager, on 10/11/2022 at 10:45 AM EST. I, Juan Ferro PA-C, have personally reviewed and agree with the information entered by the scribe. Coding Level of Care Code New Pt Level 3 (55249) Diagnoses Closed fracture of tuft of distal phalanx of left ring finger S62.635A CPT Codes Fracture Care - Fracture Billing Code: Fracture Billing Code ([id number])
[2022-10-11 11:10] VITALS: BMI 26.6
== END 2022-10-11 11:44 | disposition home or self-care (01) ==
PROVIDERS: PCP Internal Medicine; Visit Provider Physician Assistant
DX: S62.635A Displaced fracture of distal phalanx of left ring finger, initial encounter for closed fracture (principal)
CPT/HCPCS: 26750; 99203

== ENCOUNTER → 2022-10-11 10:43 | Outpatient (BNVA) | payer OTHER, SELFPAY | PROVIDERS: PCP Internal Medicine; Visit Provider Physician Assistant | DX: S62.635A Displaced fracture of distal phalanx of left ring finger, initial encounter for closed fracture (principal) | CPT/HCPCS: 99202 ==

== ENCOUNTER → 2022-11-24 11:14 | Outpatient (BNV) | payer OTHER, SELFPAY | PROVIDERS: PCP Internal Medicine; Visit Provider Internal Medicine | DX: D64.9 Anemia, unspecified (principal) | CPT/HCPCS: 99203; 99214 ==

== ENCOUNTER 2023-05-21 08:55 | Outpatient (REF) | payer OTHER, SELFPAY ==
--- NOTE | ~2023-05-21 | XR_ITS ---
EXAMINATION: XR KNEE, RIGHT CLINICAL INFORMATION: Right knee pain. COMPARISON: None available. TECHNIQUE: Four views of the right knee. FINDINGS: No fracture or subluxation. Mild to moderate joint space narrowing of the medial patellofemoral compartments. Faint chondrocalcinosis. No osseous erosions. No joint effusion. Moderate vascular calcifications. XR/XR knee RT 3V IMPRESSION: 1. No acute fracture or malalignment. 2. 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 3. Faint chondrocalcinosis.
== END 2023-05-21 08:56 | disposition home or self-care (01) ==
LOC: HO.XRAY 08:55
PROVIDERS: PCP Internal Medicine; Visit Provider Internal Medicine
DX: M25.561 Pain in right knee (principal)
CPT/HCPCS: 73562

== ENCOUNTER 2023-05-31 08:24 | Outpatient (REF) | payer OTHER, SELFPAY ==
[2023-05-31 15:08] LABS: Alanine Aminotransferase 15 U/L (0-40); Albumin Level 3.8 g/dL (3.5-5.0); Alkaline Phosphatase 61 U/L (39-117); Anion Gap 11 (12-20); Aspartate Amino Transferase 16 U/L (5-37); Bilirubin Total 0.5 mg/dL (0.0-1.0); Blood Urea Nitrogen 16 mg/dL (9-16); Carbon Dioxide 24 mmol/L (22-29); Chloride 107 mmol/L (96-108); Cholesterol 98 mg/dL (<200); Estimated Glomerular Filt Rate > 60; Glucose Random 128 mg/dL (60-115); HDL Cholesterol 54 mg/dL (>40); LDL Cholesterol Calculated 36 mg/dL (<100); Potassium 3.7 mmol/L (3.3-5.1); Sodium 138 mmol/L (135-145); Total Protein 6.9 g/dL (6.5-8.0); Triglycerides 41 mg/dL (<150); Uric Acid 4.5 mg/dL (3.4-7.0)
[2023-05-31 18:18] LABS: Influenza A PCR NEGATIVE (Negative); Influenza B PCR NEGATIVE (Negative); Resp Syncy Virus RNA Qual PCR NEGATIVE (Negative); SARS COV2 PCR INHOUSE NEGATIVE (Negative)
== END 2023-05-31 08:25 | disposition home or self-care (01) ==
LOC: HO.CHCLDS 08:24
PROVIDERS: Internal Medicine; Visit Provider Internal Medicine
DX: Z11.52 Encounter for screening for COVID-19 (principal); M25.561 Pain in right knee; E11.9 Type 2 diabetes mellitus without complications; R05.1 Acute cough; I10 Essential (primary) hypertension
CPT/HCPCS: 0241U; 36415; 80053; 80061; 84550; 87070

== ENCOUNTER 2023-06-27 10:09 | Outpatient (AMB) | payer OTHER, SELFPAY ==
[2023-06-27 10:10] VITALS: BP 120/70; PULSE 58; BMI 27.1
--- NOTE | 2023-06-27 10:10 | A.OFFVIS_ITS ---
Vital Signs 06/27/23 10:10 Height 5 ft 8 in Weight 178 lb 9.191 oz BMI 27.1 BP 120/70 Blood Pressure Location Lt brachial Position Sitting Pulse 58 Intake Visit Reasons: 1 yr f/up Intake Note: 1 year follow-up with ekg c/o some sob at times Lap Regulator Required: No Allergies insulin aspart [From NOVOLOG U-100 INSULIN ASPART] Allergy (Intermediate, Verified 05/23/23 10:40) ITCHING insulin detemir [From LEVEMIR U-100 INSULIN] Allergy (Intermediate, Verified 05/23/23 10:40) ITCHING lidocaine Allergy (Intermediate, Verified 05/23/23 10:40) Rash aspirin [ASA] Allergy (Unknown, Verified 05/23/23 10:40) wheezing, chest tightness, wheezing tetanus and diphtheria toxoids [TETANUS AND DIPHTHERIA TOXOIDS] Allergy (Unknown, Verified 05/23/23 10:40) SWELLING, REDNESS Medication List - Last Reconciled 06/27/23 by Nikita Mcmullen MD amitriptyline 50 mg PO DAILY amlodipine 10 mg PO QAM atorvastatin (Lipitor) 40 mg PO DAILY bupropion HCl XL (Wellbutrin XL) 300 mg PO QAM bupropion HCl XL 300 mg PO QAM clopidogrel (Plavix) 75 mg PO DAILY ferrous sulfate (FeroSul) 325 mg PO Q OTHER DAY gabapentin 400 mg PO TID insulin glargine (Lantus U-100 Insulin) 25 units subcut BEDTIME insulin lispro (Humalog U-100 Insulin) 8 units subcut TID ketotifen fumarate 0.025%(0.035%) 0 drps ophthalmic (eye) DAILY losartan 100 mg PO DAILY metoprolol tartrate 37.5 mg PO BID prazosin 2 mg PO BEDTIME prazosin 1 mg PO BEDTIME vilazodone 40 mg PO DAILY HPI Comments Details: Christian returns for follow-up regarding coronary artery disease. He has multiple vascular risk factors including type 2 diabetes, hypertension, smoking history. He states he is doing fine. No complaints like angina at all. He is able to carry on most of his daily activities with no issues. Doing regular yoga. He was even in a retreat apparently recently where he hiked for 2 hours with no issues. [facility] Medical History Essential hypertension Type 2 diabetes mellitus with unspecified complications Back pain Atherosclerotic cardiovascular disease Abnormal myocardial perfusion study HTN (hypertension) Diabetes Surgical History Hx of elbow surgery History of operative procedure on lumbosacral spinal structure Hx of cervical spine surgery (~2019) History of colonoscopy Family History Father History of dementia Mother No problems noted. 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 Review of Systems Const Denies chills, Denies fatigue, Denies fever(s), Denies frequent falls, Denies weakness, Denies weight gain and Denies weight loss ENT Denies dizziness Card Denies chest pain, Denies leg edema, Denies lightheadedness, Denies palpitations, Denies dyspnea, Denies dyspnea on exertion, Denies orthopnea and Denies other (loss of consciousness) Resp Denies cough, Denies dyspnea and Denies dyspnea on exertion GI Denies hematochezia and Denies change in stool character Musc Denies abnormal gait, Denies muscle weakness, Denies numbness, Denies radiating pain into limb and Denies tingling Neuro Denies abnormal gait, Denies dizziness, Denies frequent falls, Denies numbness, Denies tingling and Denies weakness Endo Denies fatigue and Denies palpitations Physical Exam Vital Signs: Last Vital Signs Pulse 58 06/27/23 10:10 BP 120/70 06/27/23 10:10 BMI result Body Mass Index 27.1 Const General: comfortable and no acute distress Orientation/consciousness: patient oriented x3 HEENT Other: Unremarkable Head: Yes normal to inspection Neck Neck: Yes normal visual inspection Chest Chest palpation & inspection: normal inspection of the chest Resp Auscultation: clear to auscultation bilaterally Cardio Palpation: normal PMI Heart sounds: S1 normal heart sound present, S2 normal heart sound present, no gallops, Murmur heart sound present systolic II/ and at the right sternal border and no rubs GI Palpation (GI): Soft to palpation Back/Spine/Pelvis Other: unremarkable Skin General skin exam: no rashes or lesions noted Neuro General: patient oriented x3 Extrem General: Yes normal to inspection Psych Mental Status: mental status grossly normal Office Procedures EKG Details: EKG with sinus bradycardia at 58/Min; no significant ST-T changes and otherwise unremarkable[place] [id number], Complete Assessment & Plan Assessment & Plan (1) Atherosclerotic cardiovascular disease: Code(s): I25.10 - Atherosclerotic heart disease of [place] coronary artery without angina pectoris Category: Medical Plan: Cardiac studies- Myocardial perfusion imaging-03/2019- risk, mild intensity inferior basal, basal inferoseptal and basal inferolateral ischemia. Coronary [id number] calcification in the LAD near the 1st diagonal takeoff. Suspected less than 50% narrowing. No occlusion. No significant disease elsewhere. Clinically, absolutely no angina. Due to allergy to aspirin, remains on Plavix. Otherwise, on beta-blockers, statins. Cholesterol is well controlled. (2) Type 2 diabetes mellitus with unspecified complications: Code(s): E11.8 - Type 2 diabetes mellitus with unspecified complications Category: Medical Plan: On Insulin. Recent random glucose is 128. Hemoglobin A1c last year was 7.4. (3) Essential hypertension: Code(s): I10 - Essential (primary) hypertension Category: Medical Plan: Remains on amlodipine, losartan, metoprolol. Stable. Medications: Changed From amlodipine 5 mg PO QAM 90 tabs 3RF To amlodipine 10 mg PO QAM Coding Level of Care Code Est Pt Level 4 (81066) Diagnoses Atherosclerotic cardiovascular disease I25.10 Type 2 diabetes mellitus with unspecified complications E11.8 Essential hypertension I10 CPT Codes EKG - CPT: 43718-[id number], Complete ([id number])
== END 2023-06-27 10:51 | disposition home or self-care (01) ==
PROVIDERS: PCP Internal Medicine; Visit Provider Internal Medicine
DX: I25.10 Atherosclerotic heart disease of native coronary artery without angina pectoris (principal); E11.8 Type 2 diabetes mellitus with unspecified complications; I10 Essential (primary) hypertension
CPT/HCPCS: 93010; 99214

== ENCOUNTER → 2023-06-27 10:09 | Outpatient (BNVA) | payer OTHER, SELFPAY | PROVIDERS: Visit Provider Internal Medicine | DX: I25.10 Atherosclerotic heart disease of native coronary artery without angina pectoris (principal); I10 Essential (primary) hypertension; E11.8 Type 2 diabetes mellitus with unspecified complications | CPT/HCPCS: 93005; 99212 ==

== ENCOUNTER 2024-06-11 08:05 | Outpatient (AMB) | payer OTHER, SELFPAY ==
--- NOTE | 2024-06-11 08:10 | MHC.OFFVIS ---
Vital Signs 06/11/24 08:17 Height 5 ft 8 in Weight 176 lb BMI 26.8 BP 109/43 L Blood Pressure Location Lt brachial Position Sitting Pulse 53 Pulse Oximetry (%) 98 Oxygen Delivery Method Room Air Intake Visit Reasons: [place] repeat Screening, returning last seen 03/2020 Intake Note: Patient complex follow up for pre Colonoscopy??/ [place] 03/2020 and last Colonoscopy was 03/22/2020 with a 7/10 year colonoscopy recall. Patient cc: between diarrhea and constipation on and off and occasionally acid reflux. Denies any other GI issues for today visit. Coronary Clinical Specialist Required: No Accompanied by: Self / Same As Patient Allergies insulin aspart [From NOVOLOG U-100 INSULIN ASPART] Allergy (Intermediate, Verified 06/11/24 08:08) ITCHING insulin detemir [From LEVEMIR U-100 INSULIN] Allergy (Intermediate, Verified 06/11/24 08:08) ITCHING lidocaine Allergy (Intermediate, Verified 06/11/24 08:08) Rash aspirin [ASA] Allergy (Unknown, Verified 06/11/24 08:08) wheezing, chest tightness, wheezing tetanus and diphtheria toxoids [TETANUS AND DIPHTHERIA TOXOIDS] Allergy (Unknown, Verified 06/11/24 08:08) SWELLING, REDNESS Medication List - Last Reconciled 06/11/24 by Rafaela Pavon CNP amitriptyline 50 mg PO DAILY amlodipine 10 mg PO QAM atorvastatin (Lipitor) 40 mg PO DAILY bupropion HCl XL (Wellbutrin XL) 300 mg PO QAM bupropion HCl XL 150 mg PO QAM clopidogrel (Plavix) 75 mg PO DAILY ferrous sulfate (FeroSul) 325 mg PO Q OTHER DAY gabapentin 400 mg PO TID insulin glargine (Lantus U-100 Insulin) 25 units subcut BEDTIME insulin lispro (Humalog U-100 Insulin) 8 units subcut TID ketotifen fumarate 0.025%(0.035%) 0 drps ophthalmic (eye) DAILY losartan 100 mg PO DAILY metoprolol tartrate 37.5 mg PO BID prazosin 2 mg PO BEDTIME prazosin 1 mg PO BEDTIME tizanidine 2 mg PO TID PRN tramadol 50 mg PO TID PRN vilazodone 40 mg PO DAILY HPI HPI [place] repeat Screening, returning last seen 03/2020: Details: Patient is a 63-year-old male with PMH of DMII, hypertension and chronic pain syndrome. Pt is here today for colonoscopy screening. States he was told to complete screening every five years. He expresses concerns about his family history of cancer (see below). He reports alternating stool habits of constipation and diarrhea. Reports BM every other day, type 3 on [place] stool chart. Reports diarrhea is triggered by certain foods but unable to identity the culprit foods. Taking a tbsp of psyllium husk daily Typical foods consumed: salads, turkey/salmon burgers, yogurt, sweet potato water for hydration 36-48 oz/day, black tea Patient denies: systemic symptoms, n/v, ab pain, appetite changes, unintentional wt loss, cardiopulmonary symptoms, bladder changes or melena/hematochezia. Social hx: ETOH cessation nine years ago (2015) denies recreational drug use former smoker, cessation approx 8-9 years ago ([id number]) Denies personal hx of CA Family hx: sister-active ? Liver or kidney sister-breast CA sister-lung CA brother-lung CA PFSH Medical History (Updated 06/11/24 @ 16:17 by Rafaela Pavon CNP) Essential hypertension Type 2 diabetes mellitus with unspecified complications Back pain Atherosclerotic cardiovascular disease Abnormal myocardial perfusion study HTN (hypertension) Diabetes Surgical History (Updated 06/11/24 @ 08:11 by Joanie William) Hx of carpal tunnel repair Hx of elbow surgery History of operative procedure on lumbosacral spinal structure Hx of cervical spine surgery (~2019) History of colonoscopy Family History Father History of dementia Mother No problems noted. 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 Exam Vital Signs: Last Vital Signs Pulse 53 06/11/24 08:17 BP 109/43 L 06/11/24 08:17 Pulse Ox 98 06/11/24 08:17 Oxygen Delivery Method Room Air 06/11/24 08:17 BMI result Body Mass Index 26.8 Const General: healthy appearing, no acute distress and well developed Nutritional Appearance: well nourished Orientation/consciousness: patient oriented x3 HEENT Head: Yes normal to inspection, Yes normocephalic and Yes atraumatic Face and sinus: Yes normal facial exam Eyes General: appearance normal, both eyes and all related structures Neck Neck: Yes normal visual inspection Resp Effort & Inspection: normal respiratory effort, able to speak in complete sentences, no tracheal deviation and symmetric chest movement Auscultation: clear to auscultation bilaterally Cardio Jugular venous distension: no JVD Rate: regular rate Rhythm: regular rhythm Heart sounds: S1 normal heart sound present, S2 normal heart sound present, no gallops and no murmurs GI Inspection: Yes normal to inspection, No distended and Yes obesity Palpation (GI): Soft to palpation, not firm, nontender and No hepatosplenomegaly present Auscultation: normal bowel sounds Neuro General: patient oriented x3 Gait exam (Neuro): Normal gait present Psych Appearance: grossly normal Mental Status: mental status grossly normal Speech and movement: Normal speech and movement present Affect: normal affect Attitude: cooperative Thought process: Normal thought process present Thought content: Normal thought content present Insight: Good insight present (Psych) Judgement: Good judgement present (Psych) Results Reviewed Results Reviewed: COLONOSCOPY Date of Service: 03/22/20 Procedure: The patient was placed in the left lateral decubitis position and pre-procedure medications were administered. After a digital rectal examination of the ano-rectum, the video colonoscope was inserted intothe rectum and advanced through the colon to the cecum/TI. The colonoscope was slowly withdrawn in a retrograde panoramic fashion and the colon mucosa was carefully examined including a retroflexed view of the rectum. Findings and interventions are described below. Procedure Difficulty:easy Findings: Terminal Ileum-normal Cecum: diminutive polyp lesion 3-5 mm removed with forceps, otherwise normal Ascending Colon: normal Transverse Colon -normal Descending Colon:normal Sigmoid Colon: mild diverticulosis otherwise normal Rectum: Retroflexion with small internal hemorrhoids, grade I Anorectum - normal Colon preparation: Lane Bowel Preparation Scale Right colon; 3 Transverse colon: 3 Left colon; 3 Pathology Collected: 03/22/20 Diagnosis Cecum, polypectomy: Tubular adenoma; no high grade dysplasia or carcinoma seen Assessment & Plan Assessment & Plan (1) Constipation: Code(s): K59.00 - Constipation, unspecified Category: Medical Qualifiers: Constipation type: other constipation type Qualified Code(s): K59.09 - Other constipation Plan: Discussed symptoms likely idiopathic VS drug-induced VS lifestyle. Discussed adding MiraLax to current regimen given current pharmacological management for pain and diabetes, patient declined. Can continue with daily psyllium. Reinforced lifestyle modifications to promote regularity: -higher fiber diet -adequate hydration with water -150 minutes of moderate intensity exercise per week (2) H/O colonoscopy: Code(s): Z98.890 - Other specified postprocedural states Plan: Reviewed colonoscopy from 03/22/2020 (see above). Education on screening recommendations based on pathology findings for repeat in 7-10 years. However, shared decision-making to follow up in 1 year for re-evaluation. Plan Follow-up in 1 year or sooner as needed. Time: I spent a total of 45 minutes on the date of encounter which includes: Preparing to see the patient (reviewed previous documentation, test results and medical history) Performing a medically appropriate exam and/or evaluation Ordering medications, tests, and procedures Documenting clinical information in the health record Coding Level of Care Code Established Pt Est Pt Level 3 (24092) Patient Type Established Diagnoses Other constipation K59.09 Constipation type: other constipation type H/O colonoscopy Z98.890
--- OUTSIDE RECORDS SUMMARY | 2024-06-11 08:11 | XMS_ITS | Encounter Summary ---
Author Organization [employer] [facility] Address [address] [place] [address] [place] [address] Care Team Providers Care Material Analyst Name Role Phone Olesya Diaz MD Primary Care Provider [phone] Encounter Details Date Type Department Care Team (Late st Contact Info) Description 01/16/2023 Abstract [facility] ADULT DENTAL [address] [place], [place] [phone] Seng Zacarias DMD [address] [place] [address] Social History Tobacco Use Types Packs/Day Years Used Date Smoking Tobacco: Never Alcohol Use Standard Drinks/Week Comments Not Currently 0 (1 standard drink = 0.6 oz pur e alcohol) Sex and Gender Information Value Date Recorded Sex Assigned at Male 01/02/2022 10:21 AM EDT Legal Sex Male 10:21 AM EDT Gender Identity Male 01/02/2022 10:21 AM EDT Sexual Orientation Straight 01/02/2022 10 :21 AM EDT documented as of this encounter Plan of Treatment Upcoming Encounters Date Type Department Care Team (Late st Contact Info) Description 06/25/2024 3:00 PM EDT Office Visit [facility] ADULT D[facility]AL [address] [place], [place] [phone] Kimberly Lomax DMD 07/24/2024 1:30 PM EDT Clinical Support [facility] MED & PEDS [address] [place], [place] [phone] Ramila Montiel RN [address] [place], [place] [phone] documented as of this encounter Visit Diagnoses Not on filedocumented in this encounter Care Teams Material Analyst Relationship Specialty Start Date End Date Olesya Diaz MD [address] [place] [address] PCP - General Internal Medicine 03/05/18 documented as of this encounter
--- OUTSIDE RECORDS SUMMARY | 2024-06-11 08:11 | XMS_ITS | Encounter Summary ---
Author Organization [employer] [facility] Address [address] [place] [address] [place] [address] Care Team Providers Care Information Technology Coordinator Name Role Phone Olesya Diaz MD Primary Care Provider [phone] Encounter Details Date Type Department Care Team (Late st Contact Info) Description 01/16/2023 Abstract [facility] ADULT DENTAL [address] [place], [place] [phone] Chitra Brooks DDS [address] [place], [place] [phone] Social History Tobacco Use Types Packs/Day Years [...] 06/25/2024 3:00 PM EDT Office Visit [facility] ADULT DENTAL [address] [place], [place] [phone] Kimberly Lomax DMD 07/24/2024 1:30 PM EDT Clinical Support [facility] MED & PEDS [address] [place], [place] [phone] Ramila Montiel, SURJIT [address] [place], [place] [phone] documented as of this encounter Visit Diagnoses Not on filedocumented in this encounter Care Teams Information Technology Coordinator Relationship Specialty Start Date End Date Olesya Diaz MD [address] [place] [address] PCP - General Internal Medicine 03/05/18 documented as of this encounter
--- OUTSIDE RECORDS SUMMARY | 2024-06-11 08:11 | XMS_ITS | Encounter Summary ---
Author Organization [employer] Address [address] [place] [address] [address] [place] [address] Care Team Providers Care Lorry Weigher Name Role Phone Olesya Diaz MD Primary Care Provider [phone] Reason for Visit * Reason Onset Date Comments Prior Authorization 08/20/2023 Encounter Details Date Type Department Care Team (Late st Contact Info) Description 08/20/[address] [facility] ADULT DENTAL [address] [place] [address] Catrachita Correa DDS [address] [place] [address] Prior Authorization Social History Tobacco Use Types Packs/Day Years [...] AM EDT documented as of this encounter Miscellaneous Notes * Telephone Encounter - Catrachita Correa DDS - 08/21/2023 8:07 AM EDT Thank you for the heads up * Telephone Encounter - Nate Moulton - 08/20/2023 10:15 AM EDT Rashida from [facility] called to inform that teeth number 20, 29, 30 will not be covered for implant. Auth #[id number]. If PCP has any questions on what teeth will be covered call [phone]. CS documented in this encounter Plan of Treatment Upcoming Encounters Date Type Department Care Team (Late st Contact Info) Description 06/25/2024 3:00 PM EDT Office Visit [facility] ADULT DENTAL [address] [place] [address] Kimberly Lomax DMD 07/24/2024 1:30 PM EDT Clinical Support [facility] MED & PEDS [address] [place], [place] [phone] Ramila Montiel, SURJIT [address] [place] [address] documented as of this encounter Visit Diagnoses Not on filedocumented in this encounter Care Teams Lorry Weigher Relationship Specialty Start Date End Date Olesya Diaz MD [address] [place] [address] PCP - General Internal Medicine 03/05/18 documented as of this encounter
--- OUTSIDE RECORDS SUMMARY | 2024-06-11 08:12 | XMS_ITS | Encounter Summary ---
Author Organization [employer] [facility] Address [address] [place] [address] Care Team Providers Care Press Machine Feeder Name Role Phone Olesya Diaz MD Primary Care Provider [phone] Encounter Details Date Type Department Care Team (Latest Contact Info) Description 05/20/2020 Abstract [facility] Dental, Provider, DDS Social History Tobacco Use Types Packs/Day Years Used Date Smoking Tobacco: Never Assessed Sex and Gender Information Value Date Recorded Sex Assigned at Male 01/02/2022 10:21 AM EDT Legal Sex Male 10:21 AM EDT Gender Identity Male 01/02/2022 10:21 AM EDT Sexual Orientation Straight 01/02/2022 10 :21 AM EDT documented as of this encounter Plan of Treatment Upcoming Encounters Date Type Department Care Team ( st Contact Info) Description 06/25/2024 3:00 PM EDT Office Visit [facility] ADULT DENTAL [address] [place] [address] Kimberly Lomax DMD 07/24/2024 1:30 PM EDT Clinical Support [facility] MED [facility] PEDS [address] [place] [address] Ramila Montiel, SURJIT [address] [place] [address] documented as of this encounter Visit Diagnoses Not on filedocumented in this encounter Care Teams Press Machine Feeder Relationship Specialty Start Date End Date Olesya Diaz MD [address] [place] [address] PCP - General Internal Medicine 03/05/18 documented as of this encounter
--- OUTSIDE RECORDS SUMMARY | 2024-06-11 08:12 | XMS_ITS | Encounter Summary ---
Author Organization [employer] Address [address] [place] [address] Care Team Providers Care Ssis Etl Developer Name Role Phone Olesya Diaz MD Primary Care Provider [phone] Reason for Visit * Reason Comments Med Refill Encounter Details Date Type Department Care Team (Late st Contact Info) Description 10/25/2022 Refill [facility] [address] [place], [place] [phone] Chely Heart MD [address] [place], [place] [phone] Paresthesia of skin Social History Tobacco Use Types Packs/Day Years [...] Description 06/25/2024 3:00 PM EDT Office Visit [facility] ADULT DENTAL [address] [place], [place] [phone] Kimberly Lomax DMD 07/24/2024 1:30 PM EDT Clinical Support [facility] MED & PEDS [address] [place], [place] [phone] Ramila Montiel RN [address] [place], [place] [phone] documented as of this encounter Visit Diagnoses Diagnosis Paresthesia of skin documented in this encounter Care Teams Ssis Etl Developer Relationship Specialty Start Date End Date Olesya Diaz MD [address] [place] [address] PCP - General Internal Medicine 03/05/18 documented as of this encounter
--- OUTSIDE RECORDS SUMMARY | 2024-06-11 08:12 | XMS_ITS | Clinical Summary ---
Author Organization [employer] Address [address] [place] [address] [address] [place] [address] Care Team Providers Care Fire Range Technician Name Role Phone Olesya Diaz MD Primary Care Provider [phone] Allergies Active Allergy Reactions Criticality Noted Date Comments Aspirin 02/15/2012 Other reaction(s): asthma effect Chest tightening, wheezing Fish Allergy Rash Low 05/15/2022 Insulin Aspart (Human Analog) 04/10/2012 Other reaction(s): itchy Full body rash Insulin Detemir 04/10/2012 Other reaction(s): itchy Full body rash Insulin Isophane 05/15/2022 Other reaction(s): Insulin used cannot take Levimir, all over itching Insulins 05/15/2022 Other reaction(s): allergic to levamir brand insulin causes body rash, allergic to novalog brand causes body rash, Insulin used Lidocaine 05/15/2016 Other reaction(s): Rash Other reaction(s): lidocaine patch adhesive caused rash Pollen Extract 01/18/2023 Other reaction(s): heavy industrial odors - asthma, lidocaine patch adhesive causes body rash for a week, tetnus- causes arm swelling Tetanus Toxoid 07/12/2022 Local reaction--redness, swelling, irritation Medications amitriptyline (Elavil) 10 MG tablet Take 2 tablets by mouth at bedtime. Active amLODIPine (Norvasc) 5 MG tablet Take 1 tablet by mouth. Active buPROPion XL (Wellbutrin XL) 300 MG 24 hr tablet Take 1 tablet by mouth. Active glucagon 1 MG injection Inject 1 mL under the skin. 05/01/19 20 Active glucose blood (FREESTYLE TEST STRIPS) test strip every 3 (three) hours. Active Homeopathic Products (Arnica) tincture Active insulin glargine (Lantus) 100 UNIT/ML injection inject 25-30 Unit by subcutaneous route every bedtime as per insulin protocol Active insulin lispro (HumaLOG) 100 UNIT/ML injection inject 6-8 units by subcutaneous route 3 times a day w/ meals Active naloxone (Narcan) 4 mg/0.1 mL nasal spray Administer 0.1 mL into affected nostril(s). 12/01/19 22 Active prazosin (Minipress) 1 MG capsule 1 capsule of 1 mg and 1 cap of 2 mg at night : total dose of 3 mg at night 03/13/19 Active prazosin (Minipress) 2 MG capsule Take 2 capsules by mouth. Active predniSONE (Deltasone) 20 MG tablet take 2 by Oral route once a day x 5 days. 03/17/19 22 Active vilazodone (Viibryd) 40 mg tablet Take 1 tablet by mouth. Every day with food Active TRUEplus Lancets 33G misc Use to blood sugar 7 times a day Active gabapentin (Neurontin) 400 MG capsuleIndicati ons:Dorsalgia Take 1 capsule (400 mg) by mouth every 8 (eight) hours. 90 capsule 03/15/19 23 Active Continuous Blood Gluc Sensor (Dexcom G6 Sensor) miscIndications :Type 2 diabetes mellitus without obesity (CMS/HCC) To use daily 3 each 05/16/19 23 Active Diclofenac Sodium 1 % gelIndications: Back pain, unspecified back location, unspecified back pain laterality, unspecified chronicity Apply 2 g topically 3 times daily. 100 g 3 05/16/19 23 Active glucose (Glutose 15) 40 % gel oral gel USE NEEDED FOR blood sugar LESS THAN 70. 37.5 g 04/13/19 24 Active azithromycin (Zithromax Z-Romeo) 250 MG tabletIndicatio ns:Acute cough Take 2 tabs po daily x 1 day then 1 tab po daily x 4 days 6 tablet 05/31/19 24 Active Arthritis Pain Relieving 0.075 % topical cream APPLY TO THE AFFECTED AREA(S) THREE TIMES DAILY 57 g 06/11/19 24 Active metoprolol tartrate (Lopressor) 25 MG tablet TAKE 1&1/2 TABLETS EVERY MORNING AND BEDTIME 90 tablet 11 07/24/19 24 Active Viagra 50 MG tablet TAKE 1 TABLET 1 HOUR BEFORE SEXUAL RELATIONS ONCE DAILY NEEDED. 10 tablet 5 08/03/19 24 Active amLODIPine (Norvasc) 10 MG tabletIndicatio ns:Primary hypertension TAKE ONE TABLET EVERY MORNING 30 tablet 11 09/19/19 24 Active atorvastatin (Lipitor) 40 MG tabletIndicatio ns:Type 2 diabetes mellitus without complication, with long-term current use of insulin (CMS/HCC) TAKE ONE TABLET EVERY NIGHT AT BEDTIME 90 tablet 11 09/19/19 24 Active acetaminophen (Tylenol 8 Hour) 650 MG ER tablet Take 2 tablets by mouth every 8 (eight) hours. 01/25/20 22 Active Blood Glucose Monitoring Suppl (ONE [employer] ULTRA 2) w/Device kit Use as instructed 08/08/19 23 Active Continuous Glucose Hepatology Physician (Dexcom G7 Hepatology Physician) device by Other route if needed. 07/13/19 23 Active B Complex Vitamins (B COMPLEX 50 PO) Take by mouth. 10/02/19 Active [place]-3 Fatty Acids (Fish Oil) 360 MG capsule Take by mouth. 10/02/19 20 Active tiZANidine (Zanaflex) 4 MG tabletIndicatio ns:Back pain, unspecified back location, unspecified back pain laterality, unspecified chronicity TAKE ONE TABLET BY MOUTH EVERY 8 HOURS NEEDED. NO MORE THAN THREE TABLETS PER 24 HOURS 60 tablet 3 12/18/19 24 Active Ferrous Sulfate (iron) 325 (65 Fe) MG tabletIndicatio ns:Anemia, unspecified TAKE ONE TABLET EVERY OTHER DAY IN THE MORNING 15 tablet 3 04/22/19 25 Active clopidogrel (Plavix) 75 MG tabletIndicatio ns:Coronary artery disease involving coe[place]'alene coronary artery of coe[place]ene heart without angina pectoris TAKE ONE TABLET EVERY MORNING 30 tablet 3 04/23/19 25 Active gabapentin (Neurontin) 400 MG capsuleIndicati ons:Paresthesia of skin TAKE ONE CAPSULE THREE TIMES DAILY IN THE MORNING, AT NOON, AND AT BEDTIME 90 capsule 3 04/23/19 25 Active losartan (Cozaar) 100 MG tabletIndicatio ns:Primary hypertension TAKE ONE TABLET EVERY MORNING 30 tablet 5 04/23/19 25 Active traMADol (Ultram) 50 MG tabletIndicatio ns:Chronic pain syndrome TAKE ONE TABLET BY MOUTH EVERY 8 HOURS NEEDED FOR SEVERE PAIN 84 tablet 06/03/19 Active amoxicillin (Amoxil) 500 MG capsule Take 1 capsule (500 mg) by mouth every 8 (eight) hours for 7 days. 21 capsule 06/05/19 25 2024 Active traMADol (Ultram) 50 MG tabletIndicatio ns:Chronic pain syndrome TAKE ONE TABLET BY MOUTH EVERY 8 HOURS NEEDED FOR SEVERE PAIN 84 tablet 05/06/19 25 2024 Discontinued Active Problems Problem Noted Date Diagnosed Date Long-term current use of opiate analgesic 2024 Tubular adenoma 03/06/2024 Dental calculus 11/07/2023 Dental plaque 11/07/2023 Acute cough 05/31/2023 Assessment & Plan (05/31/2023 1:23 PM EDT): 62 year old diabetic with c/o new onset of cough productive of yellow sputum associated with low grade fevers. Neg Covid, Neg Flu, Neg Strep Given the fact that he is diabetic I will treat this as a viral URI with now a potential bacterial superinfection Plan: Acetaminophen PRN, Z-Pack, Guaifenesin Follow up if no improvement or worsening of symptoms [facility] current use of insulin 01/18/2023 01/18/2023 Neck pain 01/18/2023 01/18/2023 Pain of upper extremity 01/18/2023 01/19/20 23 Pancreatitis 01/18/2023 01/18/2023 Low back pain 01/18/2023 01/18/2023 Thoracic back pain 01/18/2023 01/18/2023 History of alcohol abuse 11/29/2022 023 Nicotine dependence 11/29/2022 01/18/2023 Type 2 diabetes mellitus 07/12/2022 023 Overview (01/18/2023): Last Assessment & Plan: Control is good based upon the patient's dexcom G7 download and his recent A1C of 6.6%. No frequent or severe hypoglycemia. He had an episode of hypoglycemia last night due to taking too much insulin for what he ate. He corrected with 2 glucose tablets and then was fine. Reviewed how to treat hypoglycemia. He is having a lot of post prandial glucose spikes, discussed increasing his humalog by 1-2 units to help prevent the spikes. Continue to work on eating healthy and being active. To call or message with any issues managing his glucose levels. Up to date with [facility]. Labs ordered for prior to next visit Last Assessment & Plan: Control good. No frequent or severe hypoglycemia. Tending to go down late morning & readings are variable in the evening. Advised to either add protein with breakfast, and/or have small snack mid-am when active. Advised to be mindful of impact of food with evening meal & work on adjusting dose of insulin accordingly. Continue to work on eating healthy & keeping active. To call or send in BG with problems with glycemic control. Will do labs today. To call if hasn't heard from us within 1-2 weeks. Up to date with [facility]. Foot & nail care good. Erectile dysfunction 01/18/2022 Type 2 diabetes mellitus without obesity 022 Normocytic anemia 05/20/2020 Depressive disorder 01/27/2015 Hypertensive disorder 01/27/2015 Hypertension 01/27/2015 01/18/2023 Overview (01/18/2023): Last Assessment & Plan: Well controlled, on ARB, etc. Managed by PCP Diabetes mellitus type 2, uncomplicated 10/18/19 13 Anxiety 1959 01/18/2023 Encounters Date Type Department Care Team Description 06/04/2024 3:00 PM EDT Office Visit [facility] [address] [place] [address] Kimberly Lomax DMD 06/02/2024 Refill [facility] [address] [place] [address] Olesya Diaz MD Chronic pain syndrome 05/06/2024 1:30 PM EST Clinical Support [facility] [address] [place] [address] Ramila Montiel, SURJIT Long-term current use of opiate analgesic 05/06/2024 Travel 05/05/2024 Refill [facility] [address] [place] [address] Olesya Diaz MD Chronic pain syndrome 04/22/2024 Refill [facility] [address] [place] [address] Olesya Diaz MD Coronary artery disease involving coe[place] d'alene coronary artery of coe[place]'al[place] heart without angina pectoris; Paresthesia of skin; Primary hypertension 04/21/2024 Refill [facility] [address] [place] [address] Olesya Diaz MD Anemia, unspecified 04/02/2024 Refill [facility] [address] [place] [address] Olesya Diaz MD Chronic pain syndrome 03/20/2024 2:30 PM EST Office Visit [facility] [address] [place] [address] Catrachita Correa DDS from Last 3 Months Immunizations Name Administration Dates Next Due Influenza Injectable Quadriv alant Preservative Free IIV4 MDCK 12/29/2020 Influenza injectable quadriv alent IIV4 with preservative 12/02/2018,11/28/2017,01/11/2016 Influenza injectable quadriv alent preservative free 01/18/2023,12/04/2019 Influenza, IIV3, injectable 12/17/2013, 1 Influenza, Split (incl. arnel fied surface antigen) 12/02/2012,03/18/2012 Pfizer Covid-19 Vaccine 12+ 06/18/2020 Pneumococcal Conjugate PCV 20 03/06/2024 Pneumococcal Polysaccharide PPSV23 07/21/2010 Tdap 12/26/2020 Zoster, Recombinant 02/04/2020,12/04/2019 Social History Tobacco Use Types Packs/Day Years Used Date Smoking Tobacco: Never Tobacco Cessation:Counseling Given: Not Answered Alcohol Use Standard Drinks/Week Comments Not Currently 0 (1 standard drink = 0.6 oz pur e alcohol) Sex and Gender Information Value Date Recorded Sex Assigned at Male 01/02/2022 10:21 AM EDT Legal Sex Male 10:21 AM EDT Gender Identity Male 01/02/2022 10:21 AM EDT Sexual Orientation Straight 01/02/2022 10 :21 AM EDT Last Filed Vital Signs Vital Sign Reading Time Taken Comments Blood Pressure 130/63 03/06/2024 1:09 PM EST Pulse 54 03/06/2024 1:09 PM EST Temperature 36.7 ??C (98 ??F) 03/06/2024 1:09 PM EST Respiratory Rate 20 03/06/2024 1:09 PM EST Oxygen Saturation 98% 03/06/2024 1:09 PM EST Inhaled Oxygen Concentration - - Weight 82.6 kg (182 lb) 03/06/2024 1:09 PM EST Height 172.7 cm (5' 8 ) 03/06/2024 1:09 PM EST Body Mass Index 27.67 03/06/2024 1:09 PM EST Plan of Treatment Upcoming Encounters Date Type Department Care Team (Late st Contact Info) Description 06/25/2024 3:00 PM EDT Office Visit [facility] [address] [place] [address] Kimberly Lomax DMD 07/24/2024 1:30 PM EDT Clinical Support [facility] [address] [place] [address] Ramila Montiel, RN [address] [place] [address] Health Maintenance Due Date Last Done Comments CT Colonography 1959 Depression Screening 1959 FIT DNA/Cologuard 1959 FIT 1959 FOBT 1959 HIV Screening 1959 SDOH Screening 1959 Sigmoidoscopy 1959 Eye Exam 08/23/1969 Alcohol/Substance Use Screening 1971 Hepatitis C Screening 08/23/1977 RSV Patients and Patients Aged 60 years or older (1 - Risk 60-74 years 1-dose series) 2019 Dental Oral Exam 05/07/2024 11/07/2023, 03/2023, 10/25/2022, Additional history exists Dental Prophylaxis 05/07/2024 11/07/2023, 0 05/04/2023, 10/25/2022, Additional history exists Lipid Panel 05/30/2024 05/31/2023, 03/23/2021 Diabetes: Hemoglobin A1C 06/19/2024 025, 03/06/2024, 09/28/2023, Additional history exists Dental X-Ray: Bitewings 11/07/2024 11/07/19, 06/08/2023, 01/11/2023, Additional history exists Diabetes: Urine Protein Screening 02/17/2025 02/18/2024, 11/29/2022, 03/23/2021 Diabetes: Foot Exam 03/06/2025 03/06/2024, 10/17/2022, 10/17/2022, Additional history exists Tobacco Screening 04/09/2025 04/09/2024 Dental X-Ray: Full Mouth 03/21/2027 025, 11/07/2023, 02/22/2016 Colonoscopy 02/19/2030 02/20/2020, 06/21/2012 Colorectal Cancer Screening 02/19/2030 DTaP/Tdap/Td Vaccines (2 - Td or Tdap) 12/26/2030 12/26/2020 Zoster Vaccines Completed 02/04/2020, 12/04/2019 COVID-19 Vaccine Completed 02/04/2024, , 01/14/2022, Additional history exists Influenza Vaccine Completed 02/04/2024, , 12/29/2020, Additional history exists Pneumococcal Vaccine: 50+ Years Completed 03/06/2024, 07/21/2010 HIB Vaccines Aged Out No longer eligi ble based on patient's age to complete this topic HPV Vaccines Aged Out No longer eligi ble based on patient's age to complete this topic Hepatitis A Vaccines Aged Out No long er eligible based on patient's age to complete this topic Hepatitis B Vaccines Aged Out No long er eligible based on patient's age to complete this topic IPV Vaccines Aged Out No longer eligi ble based on patient's age to complete this topic Meningococcal Vaccine Aged Out No clark dean eligible based on patient's age to complete this topic RSV under 20 months Aged Out No longe r eligible based on patient's age to complete this topic Rotavirus Vaccines Aged Out No longer eligible based on patient's age to complete this topic Procedures Procedure Name Priority Date/Time Associated Diagnosis Comments CASE PRESENTATION, DETAILED AND EXTENSIVE TREATMENT PLANNING Routine 06/04/2024 3:00 PM EDT 12 EXTRACTION, ERUPTED TOOTH OR EXPOSED ROOT (ELEVATION/FORCEPS REMOVAL) Routine 06/04/2024 3:00 PM EDT POCT ALYCE-14 URINE DRUG SCREEN Routine 05/06/2024 1:45 PM EST Long-term current use of opiate analgesic PANORAMIC RADIOGRAPHIC IMAGE Routine 03/20/2024 2:30 PM EST POCT GLYCATED HEMOGLOBIN, TOTAL Routine 03/06/2024 2:27 PM EST Type 2 diabetes mellitus without obesity (CMS/HCC) PROPHYLAXIS - ADULT Routine 11/07/2023 2 :15 PM EDT INTRAORAL - COMPLETE SERIES OF RADIOGRAPHIC IMAGES Routine 11/07/2023 2:15 PM EDT PERIODIC ORAL EVALUATION - ESTABLISHED PATIENT Routine 11/07/2023 2:15 PM EDT Dental calculus Dental plaque Asymptomatic apical periodontitis LIPID PANEL, STANDARD Routine 05/31/2023 8:26 AM EDT Type 2 diabetes mellitus without obesity (CMS/HCC) Primary hypertension Acute pain of right knee ALBUMIN, RANDOM URINE W/CREATININE Routine 03/23/2021 11:31 AM EST COLONOSCOPY Routine 02/20/2020 from Last 3 Months or Most Recently Relevant to Health Maintenance Results * POCT ALYCE-14 Urine Drug Screen (05/06/2024 1:45 PM EST) TCA, Urine Positive Urine Urine specimen obtained by clean catch procedure / Unknown 05/06/2024 1:45 PM EST Narrative Ramila Montiel RN - 05/06/2024 1:45 PM EST Lot# [id number] Exp: 10-22-25 us Olesya Diaz MD POINT OF CARE TEST ENTER/ED IT ORDERABLES Final Result * Lipid Panel, Standard (05/31/2023 8:26 AM EDT) Triglycerides 41 <150 mg/dL [facility] Comment:Desirable Triglyceri de: less than 150 mg/dLBorderline High Triglyceride 150-199 mg/dLHigh Triglyceride: 200-499 mg/dLVery High Triglyceride: greater than or equal to 5OO mg/dL Cholesterol 98 <200 mg/dL [facility] Comment:Desirable Cholestero l: less than 200 mg/dLBorderline High Cholesterol: 200-239 mg/dLHigh Cholesterol: greater than 239 mg/dL LDL Cholesterol Calculated 36 <100 mg/dL [facility] Comment:Desirable LDL: less than 100 mg/dLNear Optimal/Above Optimal LDL: 110- 129 mg/dLBorderline High LDL: 130-159 mg/dLHigh LDL: 160-189 mg/dLVery High LDL: greater than or equal to 190 mg/dL HDL Cholesterol 54 >40 mg/dL [facility] Comment:Desirable HDL: great er than 40 mg/dL Note: This HDL assay may give artificially low results in patients with liver disease. Blood Venous blood specimen / Unknown 05/31/2023 8:26 AM EDT 05/31/2023 2:30 PM EDT us Olesya Diaz MD LAB BLOOD ORDERABLES Final Result [facility] [address] [place] [phone] * (ABNORMAL) ALBUMIN, RANDOM URINE W/CREATININE (03/23/2021 11:31 AM EST) Microalbumin Urine 4.8 See Note: mg/dL [facility] Comment: Reference Range: ?? Reference Range Not established Microalb/Creat Ratio 171(H) <30 mcg/mg creat [facility] Comment: ?? The ADA defines abnormalities in albumin excretion as follows: ?? Albuminuria Category ?Result (mcg/mg creatinine) ?? Normal to Mildly increased ?? <30 Moderately increased ? 30-299 ?? Severely increased ? > OR = 300 ?? The ADA recommends that at least two of three specimens collected within a 3-6 month period be abnormal before considering a patient to be within a diagnostic category. Creatinine, Urine 28 20 - 320 mg/dL [facility] 03/23/2021 11:3 1 AM EST Olesya Diaz MD LAB URINE ORDERABLES Final Result [facility] [address] * (ABNORMAL) Colonoscopy (02/20/2020) Anatomical Region Laterality Modality Endoscopy us Historical Provider ENDOSCOPY PROCEDURE ORDER LUCY Final Result from Last 3 Months or Most Recently Relevant to Health Maintenance Insurance [facility] - [facility] Care Teams Fire Range Technician Relationship Specialty Start Date End Date Olesya Diaz MD [address] [place] [address] FELI Lara [id number] PCP - General Internal Medicine 03/05/18
--- OUTSIDE RECORDS SUMMARY | 2024-06-11 08:12 | XMS_ITS | Encounter Summary ---
Author Organization [employer] [facility] Address [address] [place] [id number] Care Team Providers Care Kinder Teacher Name Role Phone Olesya Diaz MD Primary Care Provider [phone] Reason for Visit * Reason Comments Med Refill Encounter Details Date Type Department Care Team ([facility] Contact Info) Description 03/29/2022 Refill [facility] [address] [place], [place] [phone] Olesya Diaz MD [address] [place] [address] Social History Tobacco Use Types Packs/Day Years [...] Orientation Straight 01/02/2022 10 :21 AM EDT COVID-19 Exposure Response Date Recorded In the last 10 days, have yo u been in contact with someone who was confirmed or suspected to have Coronavirus/COVID-19? No / Unsure 03/15/2022 8:57 AM EST documented as of this encounter Plan of Treatment Upcoming Encounters Date Type Department Care Team ([facility] Contact Info) Description 06/25/2024 3:00 PM EDT Office Visit [facility] [address] [place], [place] [phone] Kimberly Lomax DMD 07/24/2024 1:30 PM EDT Clinical Support [facility] [address] [place] [address] Ramila Montiel, SURJIT [address] [place] [address] documented as of this encounter Visit Diagnoses Not on filedocumented in this encounter Care Teams Kinder Teacher Relationship Specialty Start Date End Date Olesya Diaz MD [address] [place] [address] PCP - General Internal Medicine 03/05/18 documented as of this encounter
--- OUTSIDE RECORDS SUMMARY | 2024-06-11 08:12 | XMS_ITS | Encounter Summary ---
Author Organization [employer] [facility] Address [address] [place] [address] Care Team Providers Care Parker Name Role Phone Olesya Diaz MD Primary Care Provider [phone] Encounter Details Date Type Department Care Team (Late st Contact Info) Description 01/30/2022 Abstract [facility] [address] [place], [place] [phone] ProviderViviane MD Social History Tobacco Use Types Packs/Day Years [...] Description 06/25/2024 3:00 PM EDT Office Visit [facility] [address] [place] [address] Kimberly Lomax DMD 07/24/2024 1:30 PM EDT Clinical Support [facility] [address] [place] [address] Ramila Montiel, SURJIT [address] [place] [address] documented as of this encounter Visit Diagnoses Not on filedocumented in this encounter Care Teams Parker Relationship Specialty Start Date End Date Olesya Diaz MD [address] [place] [address] PCP - General Internal Medicine 03/05/18 documented as of this encounter
--- OUTSIDE RECORDS SUMMARY | 2024-06-11 08:12 | XMS_ITS | Encounter Summary ---
Author Organization [employer] [facility] Address [address] [place] [address] Care Team Providers Care Meat Products Demonstrator Name Role Phone Olesya Diaz MD Primary Care Provider [phone] Encounter Details Date Type Department Care Team (Latest Contact Info) Description 10/26/2021 Abstract [facility] CONVERSIONS Dental, Provider, DDS Social History Tobacco [...] Description 06/25/2024 3:00 PM EDT Office Visit [facility] [address] [place] [address] Kimberly Lomax DMD 07/24/2024 1:30 PM EDT Clinical Support [facility] [address] [place] [address] Ramila Montiel, SURJIT [address] [place] [address] documented as of this encounter Visit Diagnoses Not on filedocumented in this encounter Care Teams Meat Products Demonstrator Relationship Specialty Start Date End Date Olesya Diaz MD [address] [place] [address] PCP - General Internal Medicine 03/05/18 documented as of this encounter
--- OUTSIDE RECORDS SUMMARY | 2024-06-11 08:12 | XMS_ITS | Encounter Summary ---
Author Organization [employer] [facility] Address [address] [place] [address] Care Team Providers Care Vp Delivery Name Role Phone Olesya Diaz MD Primary Care Provider [phone] Encounter Details Date Type Department Care Team (Latest Contact Info) Description 06/25/2018 Abstract [facility] CONVERSIONS Dental, Provider, DDS Social History Tobacco [...] [facility] [address] [place] [address] Kimberly Lomax DMD 07/24/2024 1:30 PM EDT Clinical Support [facility] [address] [place] [address] Ramila Montiel, SURJIT [address] [place] [address] documented as of this encounter Visit Diagnoses Not on filedocumented in this encounter Care Teams Vp Delivery Relationship Specialty Start Date End Date Olesya Diaz MD [address] [place] [address] PCP - General Internal Medicine 03/05/18 documented as of this encounter
--- OUTSIDE RECORDS SUMMARY | 2024-06-11 08:12 | XMS_ITS | Encounter Summary ---
Author Organization [employer] Address [address] [place] [address] 7 [place] [address] Care Team Providers Care Skip Operator Name Role Phone Olesya Diaz MD Primary Care Provider +1- [phone] Reason for Visit * Reason Onset Date Comments returning call 03/03/2024 Encounter Details Date Type Department Care Team (Late Contact Info) Description 03/03/2024 Telephone [facility] ADULT DENTAL [address] [place] [address] Catrachita Correa DDS [address] [place] [address] returning call Social History Tobacco Use Types Packs/Day Years [...] encounter Miscellaneous Notes * Telephone Encounter - Rosalie Bell - 03/03/2024 1:59 PM EST Patient returned call to schedule appt for extraction with Dr. Correa. Line was busy. Unable to transfer. Pls return call to patient DR documented in this encounter Plan of Treatment Upcoming Encounters Date Type Department Care Team ([facility] Contact Info) Description 06/25/2024 3:00 PM EDT Office Visit [facility] ADULT DENTAL [address] [place] [address] Kimberly Lomax DMD 07/24/2024 1:30 PM EDT Clinical Support [facility] MED & PEDS [address] [place] [address] Ramila Montiel, SURJIT [address] [place], [place] [phone] documented as of this encounter Visit Diagnoses Not on filedocumented in this encounter Care Teams Skip Operator Relationship Specialty Start Date End Date Olesya Diaz MD 505 [place] [address] PCP - General Internal Medicine 03/05/18 documented as of this encounter
--- OUTSIDE RECORDS SUMMARY | 2024-06-11 08:12 | XMS_ITS | Encounter Summary ---
Author Organization [employer] [facility] Address [address] [place] [address] Care Team Providers Care Assistant Research Scientist Name Role Phone Olesya Diaz MD Primary Care Provider +1- [phone] Encounter Details Date Type Department Care Team (Late st Contact Info) Description 10/18/2022 Orders Only [facility] MED & PEDS [address] [place], [place] [phone] Olesya Diaz MD 505 [place], [place] [phone] Primary hypertension (Primary Dx) Social History Tobacco Use Types Packs/Day Years [...] Description 06/25/2024 3:00 PM EDT Office Visit [facility] ADULT DENTAL [address] [place], [place] [phone] Kimberly Lomax DMD 07/24/2024 1:30 PM EDT Clinical Support [facility] MED & PEDS [address] [place], [place] [phone] Ramila Montiel, SURJIT 505 [place], [place] [phone] documented as of this encounter Visit Diagnoses Diagnosis Primary hypertension- Primary Unspecified essential hypertension documented in this encounter Care Teams Assistant Research Scientist Relationship Specialty Start Date End Date Olesya Diaz MD [address] [place] [address] PCP - General Internal Medicine 03/05/18 documented as of this encounter
--- OUTSIDE RECORDS SUMMARY | 2024-06-11 08:12 | XMS_ITS | Encounter Summary ---
Author Organization [employer] [facility] Address [address] [place] [address] Care Team Providers Care Solar Manager Name Role Phone Olesya Diaz MD Primary Care Provider [phone] [phone] Encounter Details Date Type Department Care Team (Late st Contact Info) Description 03/07/2024 Orders Only [facility] [address] [place], [place] [phone] Provider, MD Viviane Social History Tobacco Use Types Packs/Day Years [...] Description 06/25/2024 3:00 PM EDT Office Visit [facility] ADULT DENTAL 505 [place] [address] Kimberly Lomax DMD 07/24/2024 1:30 PM EDT Clinical Support [facility] MED & PEDS [address] [place], [place] [phone] Ramila Montiel, SURJIT 505 [place] [address] documented as of this encounter Procedures Procedure Name Priority Date/Time Associated Diagnosis Comments SURGICAL PATHOLOGY Routine 03/22/2020 11:26 AM EST documented in this encounter Results * Surgical Pathology (03/22/2020 11:26 AM EST) us Historical Provider LAB PATHOLOGY ORDERABLES Final Result documented in this encounter Visit Diagnoses Not on filedocumented in this encounter Care Teams Solar Manager Relationship Specialty Start Date End Date Olesya Diaz MD [address] [place] [address] PCP - General Internal Medicine 03/05/18 documented as of this encounter
--- OUTSIDE RECORDS SUMMARY | 2024-06-11 08:12 | XMS_ITS | Encounter Summary ---
Author Organization [employer] [facility] Address [address] [place] [address] Care Team Providers Care Adult Parole Officer Name Role Phone Olesya Diaz MD Primary Care Provider [phone]- [phone] Reason for Visit * Reason Comments Med Refill Encounter Details Date Type Department Care Team (Late st Contact Info) Description 10/01/2022 Refill [facility] MEDICINE [address] [place], [place] [phone] Olesya Diaz MD 505 [place], [place] [phone] Paresthesia of skin Social History Tobacco Use [...] Description 06/25/2024 3:00 PM EDT Office Visit [facility] ADULT DENTAL [address] [place], [place] [phone] Kimberly Lomax DMD 07/24/2024 1:30 PM EDT Clinical Support [facility] MED & PEDS [address] [place], [place] [phone] Ramila Montiel RN 505 [place], [place] [phone] documented as of this encounter Visit Diagnoses Diagnosis Paresthesia of skin documented in this encounter Care Teams Adult Parole Officer Relationship Specialty Start Date End Date Olesya Diaz MD [address] [place] [address] PCP - General Internal Medicine 03/05/18 documented as of this encounter
--- OUTSIDE RECORDS SUMMARY | 2024-06-11 08:12 | XMS_ITS | Encounter Summary ---
Author Organization [employer] [facility] Address [address] [place] [address] [place] [address] Care Team Providers Care Silverware Supervisor Name Role Phone Olesya Diaz MD Primary Care Provider [phone]- [phone] Encounter Details Date Type Department Care Team (Late Contact Info) Description 10/02/2023 Orders Only [facility] MED & PEDS [address] [place] [address] Provider, MD Viviane Social History Tobacco Use [...] 06/25/2024 3:00 PM EDT Office Visit [facility] ADULT DENTAL [address] [place] [address] Kimberly Lomax DMD 07/24/2024 1:30 PM EDT Clinical Support [facility]ED[facility] [address] [place] [address] Ramila Montiel, SURJIT 505 [place] [address] documented as of this encounter Procedures Procedure Name Priority Date/Time Associated Diagnosis Comments C-PEPTIDE Routine 09/28/2023 9:55 AM EDT ALT Routine 09/28/2023 9:55 AM EDT AST Routine 09/28/2023 9:55 AM EDT HEMOGLOBIN A1C Routine 09/28/2023 9:55 AM EDT BASIC METABOLIC PANEL Routine 09/28/2023 9:55 AM EDT documented in this encounter Results * Hemoglobin A1c (09/28/2023 9:55 AM EDT) Blood Venous blood specimen / Unknown Result [facility] Provider MD LAB BLOOD ORDERABLES Molly l Result * C-Peptide (09/28/2023 9:55 AM EDT) Blood Venous blood specimen / Unknown Result [facility] Provider MD LAB BLOOD ORDERABLES Molly l Result * Basic Metabolic Panel (09/28/2023 9:55 AM EDT) Blood Venous blood specimen / Unknown Result [facility] Provider MD LAB BLOOD ORDERABLES Molly l Result * AST (09/28/2023 9:55 AM EDT) Blood Venous blood specimen / Unknown Result [facility] Provider MD LAB BLOOD ORDERABLES Molly l Result * ALT (09/28/2023 9:55 AM EDT) Blood Venous blood specimen / Unknown Result [facility] Provider LAB BLOOD ORDERABLES Molly l Result documented in this encounter Visit Diagnoses Not on filedocumented in this encounter Care Teams Silverware Supervisor Relationship Specialty Start Date End Date Olesya Diaz MD 505 [place] [address] PCP - General Internal Medicine 03/05/18 documented as of this encounter
[2024-06-11 08:17] VITALS: BP 109/43; PULSE 53; O2SAT 98; BMI 26.8
== END 2024-06-11 09:09 | disposition home or self-care (01) ==
LOC: HO.HGI 08:05
PROVIDERS: PCP Internal Medicine; Visit Provider Nurse Practitioner Family
DX: K59.09 Other constipation (principal); Z98.890 Other specified postprocedural states
CPT/HCPCS: 99215

== ENCOUNTER → 2024-06-11 08:05 | Outpatient (BNVA) | payer OTHER, SELFPAY | PROVIDERS: PCP Internal Medicine; Visit Provider Nurse Practitioner Family | DX: K59.09 Other constipation (principal); Z98.890 Other specified postprocedural states | CPT/HCPCS: 99212 ==

== ENCOUNTER 2024-07-01 08:03 | Outpatient (AMB) | payer OTHER, SELFPAY ==
--- OUTSIDE RECORDS SUMMARY | 2024-07-01 08:10 | XMS_ITS | Encounter Summary ---
Author Organization [employer] [facility] Address [address] [place] [address] Care Team Providers Care Senior Education Specialist Name Role Phone Olesya Diaz MD Primary Care Provider [phone]- [phone] Encounter Details Date Type Department Care Team (Late st Contact Info) Description 01/30/[address] [facility] MEDICINE [address] [place] [address] ProviderViviane MD Social History Tobacco Use Types [...] Care Team (Late st Contact Info) Description 07/24/2024 1:30 PM EDT Clinical Support [facility] MED & PEDS 505 [place] [address] Ramila Montiel RN 505 [place] [address] documented as of this encounter Visit Diagnoses Not on filedocumented in this encounter Care Teams Senior Education Specialist Relationship Specialty Start Date End Date Olesya Diaz MD 505 [place] [address] PCP - General Internal Medicine 03/05/18 documented as of this encounter
--- OUTSIDE RECORDS SUMMARY | 2024-07-01 08:10 | XMS_ITS | Encounter Summary ---
Author Organization [employer] [facility] Address [address] [place] [address] [place] [address] Care Team Providers Care Business Solution Analyst Name Role Phone Olesya Diaz MD Primary Care Provider [phone] Encounter Details Date Type Department Care Team (Latest Contact Info) Description 10/26/2021 Abstract [facility] CONVERSIONS Dental, Provider, DDS Social History [...] Description 07/24/2024 1:30 PM EDT Clinical Support [facility] CH[facility] MED & PEDS 505 [place] [address] Ramila Montiel RN [address] [place] [address] documented as of this encounter Visit Diagnoses Not on filedocumented in this encounter Care Teams Business Solution Analyst Relationship Specialty Start Date End Date Olesya Diaz MD 505 [place] [address] PCP - General Internal Medicine 03/05/18 documented as of this encounter
--- OUTSIDE RECORDS SUMMARY | 2024-07-01 08:10 | XMS_ITS | Encounter Summary ---
Author Organization [employer] [facility] Address [address] [place] [address] Care Team Providers Care Structural Steel Worker Apprentice Name Role Phone Olesya Diaz MD Primary Care Provider [phone] Encounter Details Date Type Department Care Team (Late Contact Info) Description 01/16/2023 Abstract [facility] ADULT DENTAL 505 [place], [place] [phone] Seng Zacarias DDS [address] [place], [place] [phone] Social History Tobacco Use Types Packs/Day Years [...] Description 07/24/2024 1:30 PM EDT Clinical Support [facility] MED & PEDS [address] [place], [place] [phone] Ramila Montiel, SURJIT 505 [place] [address] documented as of this encounter Visit Diagnoses Not on filedocumented in this encounter Care Teams Structural Steel Worker Apprentice Relationship Specialty Start Date End Date Olesya Diaz MD [address] [place] [address] PCP - General Internal Medicine 03/05/18 documented as of this encounter
--- OUTSIDE RECORDS SUMMARY | 2024-07-01 08:10 | XMS_ITS | Encounter Summary ---
Author Organization [employer] Address [address] [place] [address] 7 [place] [address] Care Team Providers Care Operations Business Partner Name Role Phone Olesya Diaz MD Primary Care Provider [phone] Reason for Visit * Reason Onset Date Comments Prior Authorization 08/20/2023 Encounter Details Date Type Department Care Team (Late st Contact Info) Description 08/20/2023 Telephone [facility] ADULT DENTAL [address] [place] [address] Catrachita Correa DDS 230 [place] [address] Prior Authorization Social History Tobacco Use Types [...] - 08/20/2023 10:15 AM EDT Rashida from [facility] called to inform that teeth number 20, 29, 30 will not be covered for implant. Auth #[id number]. If PCP has any questions on what teeth will be covered call [phone]. CS documented in this encounter Plan of Treatment Upcoming Encounters Date Type Department Care Team ([facility] st Contact Info) Description 07/24/2024 1:30 PM EDT Clinical Support [facility] MED & PEDS 505 [place] [address] Ramila Montiel, RN 505 [place], [place] [phone] documented as of this encounter Visit Diagnoses Not on filedocumented in this encounter Care Teams Operations Business Partner Relationship Specialty Start Date End Date Olesya Diaz MD 505 [place] [address] PCP - General Internal Medicine 03/05/18 documented as of this encounter
--- OUTSIDE RECORDS SUMMARY | 2024-07-01 08:10 | XMS_ITS | Encounter Summary ---
Author Organization [employer] [facility] Address [address] [place] [address] Care Team Providers Care Cardiac Cath Lab Radiology Technologist Name Role Phone Olesya Diaz MD Primary Care Provider [phone] Encounter Details Date Type Department Care Team (Late Contact Info) Description 01/16/2023 Abstract [facility] ADULT DENTAL 505 [place], [place] [phone] Chitra Brooks DDS [address] [place], [place] [phone] Social History Tobacco Use Types Packs/Day Years [...] 1:30 PM EDT Clinical Support [facility] MED & PEDS [address] [place], [place] [phone] Ramila Montiel, SURJIT 505 [place], [place] [phone] documented as of this encounter Visit Diagnoses Not on filedocumented in this encounter Care Teams Cardiac Cath Lab Radiology Technologist Relationship Specialty Start Date End Date Olesya Diaz MD 505 [place] [address] PCP - General Internal Medicine 03/05/18 documented as of this encounter
--- OUTSIDE RECORDS SUMMARY | 2024-07-01 08:10 | XMS_ITS | Encounter Summary ---
Author Organization [employer] [facility] Address [address] [place] [address] [place] [address] Care Team Providers Care Pacs Specialist Name Role Phone Olesya Diaz MD Primary Care Provider [phone] Encounter Details Date Type Department Care Team (Latest Contact Info) Description 06/25/2018 Abstract [facility] CONVERSIONS Dental, Provider, DDS Social History [...] Description 07/24/2024 1:30 PM EDT Clinical Support [facility] CHC MED & PEDS 505 [place] [address] Ramila Montiel, SURJIT 505 [place] [address] documented as of this encounter Visit Diagnoses Not on filedocumented in this encounter Care Teams Pacs Specialist Relationship Specialty Start Date End Date Olesya Diaz MD 505 [place] [address] PCP - General Internal Medicine 03/05/18 documented as of this encounter
--- OUTSIDE RECORDS SUMMARY | 2024-07-01 08:10 | XMS_ITS | Encounter Summary ---
Author Organization [employer] [facility] Address [address] [place] [address] Care Team Providers Care Secondary School Special Ed Teacher Name Role Phone Olesya Diaz MD Primary Care Provider [phone]- [phone] Reason for Visit * Reason Comments Med Refill Encounter Details Date Type Department Care Team ([facility] Contact Info) Description 06/30/2024 Refill [facility] MED & PEDS [address] [place], [place] [phone] Olesya Diaz MD 505 [place] [address] Chronic pain syndrome Social History Tobacco Use Types Packs/Day Years [...] Upcoming Encounters Date Type Department Care Team ([facility] Contact Info) Description 07/24/2024 1:30 PM EDT Clinical Support [facility] MED & PEDS [address] [place] [address] Ramila Montiel RN 505 [place], [place] [phone] documented as of this encounter Visit Diagnoses Diagnosis Chronic pain syndrome documented in this encounter Care Teams [employer] School Special Ed Teacher Relationship Specialty Start Date End Date Olesya Diaz MD [address] [place] [address] PCP - General Internal Medicine 03/05/18 documented as of this encounter
--- OUTSIDE RECORDS SUMMARY | 2024-07-01 08:11 | XMS_ITS | Encounter Summary ---
Author Organization [employer] Address [address] [place] [address] 7 [place] [address] Care Team Providers Care Managing Editor Name Role Phone Olesya Diaz MD Primary Care Provider +1- [phone] Reason for Visit * Reason Onset Date Comments returning call 03/03/2024 Encounter Details Date Type Department Care Team (Late Contact Info) Description 03/03/2024 Telephone [facility] CHC ADULT DENTAL [address] [place] [address] Catrachita Correa DDS 230 [place] [address] returning call Social History Tobacco Use Types [...] Upcoming Encounters Date Type Department Care Team ([facility] Contact Info) Description 07/24/2024 1:30 PM EDT Clinical Support [facility] MED & PEDS 505 [place] [address] Ramila Montiel, SURJIT 505 [place] [address] documented as of this encounter Visit Diagnoses Not on filedocumented in this encounter Care Teams Managing Editor Relationship Specialty Start Date End Date Olesya Diaz MD 505 [place] [address] PCP - General Internal Medicine 03/05/18 documented as of this encounter
--- OUTSIDE RECORDS SUMMARY | 2024-07-01 08:11 | XMS_ITS | Encounter Summary ---
Author Organization [employer] [facility] Address [address] [place] [address] Care Team Providers Care Roadway Engineer Name Role Phone Olesya Diaz MD Primary Care Provider [phone] Reason for Visit * Reason Comments Med Refill Encounter Details Date Type Department Care Team ([facility] Contact Info) Description 03/29/2022 Refill [facility] MED & PEDS 505 [place], [place] [phone] Olesya Diaz MD [address] [place], [place] [phone] Social History Tobacco Use Types Packs/Day Years [...] Upcoming Encounters Date Type Department Care Team ([facility] Contact Info) Description 07/24/2024 1:30 PM EDT Clinical Support [facility] MED & PEDS 505 [place], [place] [phone] Ramila Montiel RN 505 [place] [address] documented as of this encounter Visit Diagnoses Not on filedocumented in this encounter Care Teams Roadway Engineer Relationship Specialty Start Date End Date Olesya Diaz MD [address] [place] [address] PCP - General Internal Medicine 03/05/18 documented as of this encounter
--- OUTSIDE RECORDS SUMMARY | 2024-07-01 08:11 | XMS_ITS | Encounter Summary ---
Author Organization [employer] [facility] Address [address] [place] [address] [place] [address] Care Team Providers Care Rattling Machine Tender Name Role Phone Olesya Diaz MD Primary Care Provider +1- [phone] Encounter Details Date Type Department Care Team (Late Contact Info) Description 10/02/2023 Orders Only [facility] MED & PEDS [address] [place] [address] Provider, MD Viviane Social History Tobacco Use [...] Encounters Date Type Department Care Team (Late Contact Info) Description 07/24/2024 1:30 PM EDT Clinical Support [facility] MED & PEDS [address] [place] [address] Ramila Montiel, RN 505 [place] [address] documented as of this encounter Procedures Procedure [...] EDT) Blood Venous blood specimen / Unknown e [employer] [facility] [employer] Provider MD LAB BLOOD ORDERABLES Molly l Result * C-Peptide (09/28/2023 9:55 AM EDT) Blood Venous blood specimen / Unknown e [employer] Provider MD LAB BLOOD ORDERABLES Molly l Result * Basic Metabolic Panel (09/28/2023 9:55 AM EDT) Blood Venous blood specimen / Unknown e [employer] Provider LAB BLOOD ORDERABLES Molly l Result * AST (09/28/2023 9:55 AM EDT) Blood Venous blood specimen / Unknown e [employer] Provider MD LAB BLOOD ORDERABLES Molly l Result * ALT (09/28/2023 9:55 AM EDT) Blood Venous blood specimen / Unknown e [employer] Provider MD LAB BLOOD ORDERABLES Molly l Result documented in this encounter Visit Diagnoses Not on filedocumented in this encounter Care Teams Rattling Machine Tender Relationship Specialty Start Date End Date Olesya Diaz MD [address] [place] [address] PCP - General Internal Medicine 03/05/18 documented as of this encounter
--- OUTSIDE RECORDS SUMMARY | 2024-07-01 08:11 | XMS_ITS | Encounter Summary ---
Author Organization [employer] [facility] Address [address] [place] [address] Care Team Providers Care Video Player Mechanic Name Role Phone Olesya Diaz MD Primary Care Provider [phone]- [phone] Reason for Visit * Reason Comments Med Refill Encounter Details Date Type Department Care Team ([facility] Contact Info) Description 10/01/2022 Refill [facility] MEDICINE [address] [place], [place] [phone] Olesya Diaz MD 505 [place] [address] Paresthesia of skin Social History Tobacco Use [...] Upcoming Encounters Date Type Department Care Team ([facility] Contact Info) Description 07/24/2024 1:30 PM EDT Clinical Support [facility] CH[facility] MED & PEDS 505 [place], [place] [phone] Ramila Montiel, SURJIT 505 [place], [place] [phone] documented as of this encounter Visit Diagnoses Diagnosis Paresthesia of skin documented in this encounter Care Teams Video Player Mechanic Relationship Specialty Start Date End Date Olesya Diaz MD [address] [place] [address] PCP - General Internal Medicine 03/05/18 documented as of this encounter
--- OUTSIDE RECORDS SUMMARY | 2024-07-01 08:11 | XMS_ITS | Encounter Summary ---
Author Organization [employer] [facility] Address [address] [place] [address] [place] [address] Care Team Providers Care Computer Systems Software Engineer Name Role Phone Olesya Diaz MD Primary Care Provider [phone] Encounter Details Date Type Department Care Team (Latest Contact Info) Description 05/20/2020 Abstract [facility] CONVERSIONS Dental, Provider, DDS Social History Tobacco [...] Description 07/24/2024 1:30 PM EDT Clinical Support [facility] CHC MED & PEDS 505 [place] [address] Ramila Montiel RN 505 [place] [address] documented as of this encounter Visit Diagnoses Not on filedocumented in this encounter Care Teams Computer Systems Software Engineer Relationship Specialty Start Date End Date Olesya Diaz MD 505 [place] [address] PCP - General Internal Medicine 03/05/18 documented as of this encounter
--- OUTSIDE RECORDS SUMMARY | 2024-07-01 08:11 | XMS_ITS | Clinical Summary ---
Author Organization [employer] Address [address] [place] [address] 7[address] [place] [address] Care Team Providers Care Gate Keeper Name Role Phone Olesya Diaz MD Primary Care Provider [phone] Allergies Active Allergy Reactions Criticality Noted Date [...] 37.5 g 04/13/19 24 Active azithromycin (Zithromax Z-Rmoeo) 250 MG tabletIndicatio ns:Acute cough Take 2 [...] 01/25/20 22 Active Blood Glucose Monitoring Suppl (PharmatrophiX ULTRA 2) w/Device kit Use as instructed 08/08/19 23 Active Continuous Glucose Ranch Hand (Dexcom G7 Ranch Hand) device by Other route if needed. 07/13/19 23 Active B Complex Vitamins (B COMPLEX 50 PO) Take by mouth. 10/02/19 Active Wayland-3 Fatty Acids (Fish Oil) 360 MG capsule [...] 75 MG tabletIndicatio ns:Coronary artery disease involving moapa coronary artery of moapa heart without angina pectoris TAKE ONE TABLET EVERY MORNING 30 tablet 3 04/23/19 25 Active gabapentin (Neurontin) 400 MG capsuleIndicati ons:Paresthesia of skin TAKE ONE CAPSULE THREE TIMES DAILY IN THE MORNING, AT NOON, AND AT BEDTIME 90 capsule 3 04/23/19 25 Active losartan (Cozaar) 100 MG tabletIndicatio ns:Primary hypertension TAKE ONE TABLET EVERY MORNING 30 tablet 5 04/23/19 25 Active amoxicillin (Amoxil) 500 MG capsuleIndicati ons:History of tooth extraction, unspecified edentulism class Take 1 capsule (500 mg) by mouth every 8 (eight) hours for 7 days. 21 capsule 06/26/19 25 2024 Active traMADol (Ultram) 50 MG tabletIndicatio ns:Chronic pain syndrome Take 1 tablet (50 mg) by mouth every 8 (eight) hours if needed for severe pain. Do not start before July 02, 2024. 84 tablet 07/03/19 25 Active traMADol (Ultram) 50 MG tabletIndicatio ns:Chronic pain syndrome TAKE ONE TABLET BY MOUTH EVERY 8 HOURS NEEDED FOR SEVERE PAIN 84 tablet 05/06/19 25 2024 Discontinued traMADol (Ultram) 50 MG tabletIndicatio ns:Chronic pain syndrome TAKE ONE TABLET BY MOUTH EVERY 8 HOURS NEEDED FOR SEVERE PAIN 84 tablet 06/03/19 25 2024 Discontinued amoxicillin (Amoxil) 500 MG capsule Take 1 capsule (500 mg) by mouth every 8 (eight) hours for 7 days. 21 capsule 06/05/19 25 2024 oxyCODONE (Roxicodone) 5 MG immediate release tabletIndicatio ns:History of tooth extraction, unspecified edentulism class Take 1 tablet (5 mg) by mouth every 6 (six) hours if needed for severe pain for up to 5 days. 15 tablet 06/26/19 25 2024 Active Problems Problem Noted Date Diagnosed Date [...] if no improvement or worsening of symptoms jail current use of insulin 01/18/2023 01/18/2023 Neck [...] his glucose levels. Up to date with [employer] Labs ordered for prior to next visit [...] within 1-2 weeks. Up to date with [employer] Foot & nail care good. Erectile dysfunction 01/18/2022 Type 2 diabetes mellitus without obesity 022 Normocytic anemia 05/20/2020 Depressive disorder 01/27/2015 Hypertensive disorder 01/27/2015 Hypertension 01/27/2015 01/18/2023 Overview (01/18/2023): Last Assessment & Plan: Well controlled, on ARB, etc. Managed by PCP Diabetes mellitus type 2, uncomplicated 10/18/19 13 Anxiety 1959 01/18/2023 Encounters Date Type Department Care Team Description 06/30/2024 Refill [facility] [address] [place] [address] Olesya Diaz MD Chronic pain syndrome 06/25/2024 2:30 PM EDT Office Visit [facility] [address] [place] [address] Ramiro Mays, EVETTE History of tooth extraction, unspecified edentulism class (Primary Dx) 06/24/2024 Travel 06/04/2024 3:00 PM EDT Office Visit [facility] [address] [place] [address] Kimberly Lomax DMD 06/02/2024 Refill [facility] [address] [place] [address] Olesya Diaz MD Chronic pain syndrome 05/06/2024 1:30 PM EST Clinical Support [facility] [address] [place] [address] Ramila Montiel RN Long-term current use of opiate analgesic 05/06/2024 Travel 05/05/2024 Refill [facility] [address] [place] [address] Olesya Diaz MD Chronic pain syndrome 04/22/2024 Refill [facility] [address] [place] [address] Olesya Diaz MD Coronary artery disease involving moapa coronary artery of moapa heart without angina pectoris; Paresthesia of skin; Primary hypertension 04/21/2024 Refill [facility] [address] [place] [address] Olesya Diaz MD Anemia, unspecified 04/02/2024 Refill [facility] [address] [place] [address] Olesya Diaz MD Chronic pain syndrome from Last 3 Months Immunizations Name Administration [...] Sign Reading Time Taken Comments Blood Pressure 136/62 06/25/2024 2:39 PM EDT Pulse 54 03/06/2024 1:09 PM EST Temperature [...] Upcoming Encounters Date Type Department Care Team ([facility] st Contact Info) Description 07/24/2024 1:30 PM EDT Clinical Support [facility] [address] [place] [address] Ramila Montiel RN [address] [place] [address] Health Maintenance Due Date Last Done Comments [...] Additional history exists Dental X-Ray: Bitewings 11/07/2024 11/07/19 24, 06/08/2023, 01/11/2023, Additional history exists Diabetes: Urine Protein Screening 02/17/2025 02/18/2024, 11/29/2022, 03/23/2021 Diabetes: Foot Exam 03/06/2025 03/06/2024, 10/17/2022, 10/17/2022, Additional history exists Tobacco Screening 06/25/2025 06/25/2024 Dental X-Ray: Full Mouth 03/21/2027 025, 11/07/2023, [...] Procedure Name Priority Date/Time Associated Diagnosis Comments 16 EXTRACTION, ERUPTED TOOTH OR EXPOSED ROOT (ELEVATION/FORCEPS REMOVAL) Routine 06/25/2024 2:30 PM EDT CASE PRESENTATION, DETAILED AND EXTENSIVE TREATMENT PLANNING [...] RN - 05/06/2024 1:45 PM EST Lot# [id number] Exp: 10-22-25 Olesya Diaz MD POINT OF CARE TEST ENTER/ED IT ORDERABLES Final Result * (ABNORMAL) POCT HGB A1C (03/06/2024 2:27 PM EST) Hemoglobin A1C 7.2(A) 4.0 - 6.0 % QC Media Lot # [id number] Lot# Expiration Date 81 Blood 03/06/2024 2:27 PM EST us Olesya Diaz MD POINT OF CARE TEST ENTER/ED IT ORDERABLES Final Result * Lipid Panel, Standard (05/31/2023 8:26 AM EDT) Triglycerides 41 <150 mg/dL [facility] Comment:Desirable Triglyceri de: less than 150 mg/dLBorderline High Triglyceride 150-199 mg/dLHigh Triglyceride: 200-499 mg/dLVery High Triglyceride: greater than or equal to 5OO mg/dL Cholesterol 98 <200 mg/dL [facility] Comment:Desirable Cholestero l: less than 200 mg/dLBorderline High Cholesterol: 200-239 mg/dLHigh Cholesterol: greater than 239 mg/dL LDL Cholesterol Calculated 36 <100 mg/dL [facility] Comment:Desirable LDL: less than 100 mg/dLNear Optimal/Above Optimal LDL: 110- 129 mg/dLBorderline High LDL: 130-159 mg/dLHigh LDL: 160-189 mg/dLVery High LDL: greater than or equal to 190 mg/dL HDL Cholesterol 54 >40 mg/dL [facility] Comment:Desirable HDL: great er than 40 mg/dL Note: This HDL assay may give artificially low results in patients with liver disease. Blood Venous blood specimen / Unknown 05/31/2023 8:26 AM EDT 05/31/2023 2:30 PM EDT us Olesya Diaz MD LAB BLOOD ORDERABLES Final Result Performing Organization Address [facility] Co de Phone Number [facility] [address] [place] [phone] * (ABNORMAL) ALBUMIN, RANDOM URINE W/CREATININE (03/23/2021 11:31 AM EST) Microalbumin Urine 4.8 See Note: mg/dL [facility] Comment: Reference Range: ?? Reference [...] Diaz MD LAB URINE ORDERABLES Final Result Performing Organization Address City/[facility]/ZIP Co de Phone Number [facility] [address] * (ABNORMAL) Colonoscopy (02/20/2020) Anatomical Region Laterality Modality Endoscopy us Historical Provider ENDOSCOPY PROCEDURE ORDER LUCY Final Result from Last 3 Months or Most Recently Relevant to Health Maintenance Insurance [facility] ONE CARE < 65 [place] [id number] * Guarantor: Christian Bragg Account Type Relation to Patient Date of Phone Billing Address Personal/Family Self [address] Care Teams Gate Keeper Relationship Specialty Start Date End Date Olesya Diaz MD [address] [place] [id number] PCP - General Internal Medicine 03/05/18
--- OUTSIDE RECORDS SUMMARY | 2024-07-01 08:11 | XMS_ITS | Encounter Summary ---
Author Organization [employer] [facility] Address [address] [place] [address] [place] [address] Care Team Providers Care Material Movers Name Role Phone Olesya Diaz MD Primary Care Provider [phone] Encounter Details Date Type Department Care Team (Late Contact Info) Description 03/07/2024 Orders Only [employer] [facility] [address] [place], [place] [phone] Provider, Viviane, Social History Tobacco Use Types Packs/Day Years [...] Description 07/24/2024 1:30 PM EDT Clinical Support [facility] [address] [place] [address] Ramila Montiel, SURJIT [address] [place] [address] documented as of this encounter Procedures Procedure Name Priority Date/Time Associated Diagnosis Comments SURGICAL PATHOLOGY Routine 03/22/2020 11:26 AM EST documented in this encounter Results * Surgical Pathology (03/22/2020 11:26 AM EST) Historical Provider LAB PATHOLOGY ORDERABLES Final Result documented in this encounter Visit Diagnoses Not on filedocumented in this encounter Care Teams Material Movers Relationship Specialty Start Date End Date Olesya Diaz MD [address] [place] [phone] PCP - General Internal Medicine 03/05/18 documented as of this encounter
--- OUTSIDE RECORDS SUMMARY | 2024-07-01 08:12 | XMS_ITS | Encounter Summary ---
Author Organization [employer] [facility] Address [address] [place] [address] Care Team Providers Care Chief Of Party Name Role Phone Olesya Diaz MD Primary Care Provider [phone]- [phone] Encounter Details Date Type Department Care Team ([facility] Contact Info) Description 10/18/2022 Orders Only [facility] [address] [place], [place] [phone] Olesya Diaz MD [address] [place] [address] Primary hypertension (Primary Dx) Social History Tobacco [...] Description 07/24/2024 1:30 PM EDT Clinical Support [facility] [address] [place], [place] [phone] Ramila Montiel, SURJIT [address] [place], [place] [phone] documented as of this encounter Visit Diagnoses Diagnosis Primary hypertension- Primary Unspecified essential hypertension documented in this encounter Care Teams Chief Of Party Relationship Specialty Start Date End Date Olesya Diaz MD [address] [place] [phone] PCP - General Internal Medicine 03/05/18 documented as of this encounter
--- OUTSIDE RECORDS SUMMARY | 2024-07-01 08:12 | XMS_ITS | Encounter Summary ---
Author Organization [employer] [facility] Address [address] [place] [address] [place] [address] Care Team Providers Care Data Operations Leader Name Role Phone Olesya Diaz MD Primary Care Provider [phone]- [phone] Reason for Visit * Reason Comments Med Refill Encounter Details Date Type Department Care Team ([facility] Contact Info) Description 10/25/2022 Refill [facility] [address] [place], [place] [phone] Chely Heart MD [address] [place], [place] [phone] Paresthesia of skin Social History Tobacco Use [...] Description 07/24/2024 1:30 PM EDT Clinical Support [facility] [address] [place], [place] [phone] Ramila Montiel RN [address] [place], [place] [phone] documented as of this encounter Visit Diagnoses Diagnosis Paresthesia of skin documented in this encounter Care Teams Data Operations Leader Relationship Specialty Start Date End Date Olesya Diaz MD [address] [place] [phone] PCP - General Internal Medicine 03/05/18 documented as of this encounter
--- NOTE | 2024-07-01 08:13 | MHC.OFFVIS ---
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 Clerk Required: No Accompanied by: Self / Same As Patient Allergies insulin aspart [From NOVOLOG U-100 INSULIN ASPART] Allergy (Intermediate, Verified 06/11/24 08:08) ITCHING insulin detemir [From LEVEMIR U-100 INSULIN] Allergy (Intermediate, Verified 06/11/24 08:08) ITCHING lidocaine Allergy (Intermediate, Verified 06/11/24 08:08) Rash aspirin [ASA] Allergy (Unknown, Verified 06/11/24 08:08) wheezing, chest tightness, wheezing tetanus and diphtheria toxoids [TETANUS AND DIPHTHERIA TOXOIDS] Allergy (Unknown, Verified 06/11/24 08:08) SWELLING, REDNESS Medication List - Last Reconciled 07/01/24 by Nikita Mcmullen MD amitriptyline 50 mg PO DAILY amlodipine 10 mg PO QAM atorvastatin (Lipitor) 40 mg PO DAILY bupropion HCl XL (Wellbutrin XL) 300 mg PO QAM bupropion HCl XL 150 mg PO QAM clopidogrel (Plavix) 75 mg PO DAILY ferrous sulfate (FeroSul) 325 mg PO Q OTHER DAY gabapentin 400 mg PO TID insulin lispro (Humalog U-100 Insulin) 8 units subcut TID ketotifen fumarate 0.025%(0.035%) 0 drps ophthalmic (eye) DAILY losartan 100 mg PO DAILY metoprolol tartrate 37.5 mg PO BID prazosin 2 mg PO BEDTIME prazosin 1 mg PO BEDTIME tizanidine 2 mg PO TID PRN tramadol 50 mg PO TID PRN vilazodone 40 mg PO DAILY HPI Comments Details: The patient is a 63-year-old male presenting for a routine follow-up regarding his history of Coronary Artery Disease. He reports no changes in cardiovascular symptoms over the previous year. Random pains that has been present for many years. No new angina or exertional symptoms have arisen. His recent assessments show stable blood pressure and satisfactory results in kidney function, cholesterol levels, and EKGs. The patient actively engages in yoga and hiking, although he experiences occasional hypoglycemic episodes post-exercise. [facility] Medical History Essential hypertension Type 2 diabetes mellitus with unspecified complications Back pain Atherosclerotic cardiovascular disease Abnormal myocardial perfusion study HTN (hypertension) Diabetes Surgical History Hx of carpal tunnel repair Hx of elbow surgery History of operative procedure on lumbosacral spinal structure Hx of cervical spine surgery (~2019) History of colonoscopy Family History Father History of dementia Mother No problems noted. 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 Review of Systems Const Denies chills, Denies fatigue, Denies fever(s), Denies frequent falls, Denies weakness, Denies weight gain and Denies weight loss ENT Denies dizziness Card Denies chest pain, Denies leg edema, Denies lightheadedness, Denies palpitations, Denies dyspnea and Denies dyspnea on exertion Resp Denies cough, Denies dyspnea and Denies dyspnea on exertion GI Denies hematochezia Musc Denies abnormal gait, Denies muscle weakness, Denies numbness, Denies radiating pain into limb and Denies tingling Neuro Denies abnormal gait, Denies dizziness, Denies frequent falls, Denies numbness, Denies tingling and Denies weakness Endo Denies fatigue and Denies palpitations Physical Exam Vital Signs: Last Vital Signs Pulse 50 07/01/24 08:15 BP 110/60 07/01/24 08:15 BMI result Body Mass Index 26.7 Const General: comfortable and no acute distress Orientation/consciousness: patient oriented x3 HEENT Other: Unremarkable Head: Yes normal to inspection Neck Neck: Yes normal visual inspection Chest Chest palpation & inspection: normal inspection of the chest Resp Auscultation: clear to auscultation bilaterally Cardio Palpation: normal PMI Heart sounds: S1 normal heart sound present, S2 normal heart sound present, no gallops, no murmurs and no rubs GI Palpation (GI): Soft to palpation Back/Spine/Pelvis Other: unremarkable Skin General skin exam: no rashes or lesions noted Neuro General: patient oriented x3 Extrem General: Yes normal to inspection Psych Mental Status: mental status grossly normal Office Procedures EKG Details: EKG with sinus bradycardia at 50/Min; incomplete right bundle-branch block pattern; [place]. [id number], Complete Assessment & Plan Assessment & Plan (1) Atherosclerotic cardiovascular disease: Code(s): I25.10 - Atherosclerotic heart disease of [place] coronary artery without angina pectoris Category: Medical Plan: Cardiac studies- Myocardial perfusion imaging-03/2019- risk, mild intensity inferior basal, basal inferoseptal and basal inferolateral ischemia. Coronary [id number] calcification in the LAD near the 1st diagonal takeoff. Suspected less than 50% narrowing. No occlusion. No significant disease elsewhere. [id number] 60-65% no significant valvular findings or any other abnormalities. Clinically, absolutely no angina. Due to allergy to aspirin, remains on Plavix. Otherwise, on beta-blockers, statins. Cholesterol is well controlled. (2) Type 2 diabetes mellitus with unspecified complications: Code(s): E11.8 - Type 2 diabetes mellitus with unspecified complications Category: Medical Plan: On Insulin. Recent random glucose is 119. There is no recent hemoglobin A1c. (3) Essential hypertension: Code(s): I10 - Essential (primary) hypertension Category: Medical Plan: Remains on amlodipine, losartan, metoprolol. Stable. Plan Discussion Notes I reviewed the current status of the patient's Coronary Artery Disease, noting no significant changes or new symptoms since the last evaluation. Our discussion included the benefits of maintaining regular physical activity and monitoring for hypoglycemic events post-exercise related to his diabetes. The comparative analysis of the current and previous EKG findings showed no significant deviations. I advised the patient to continue his current physical activities with caution, adjusting intensity based on symptoms. We scheduled a follow-up for the subsequent year unless new symptoms arise, ensuring the patient's comfort in reaching out for any needed discussions or immediate concerns. Patient was informed and verbally consented to the use of an ambient scribe for clinic note documentation during this visit. Patient Instructions: - Continue your regular yoga practice but monitor intensity to prevent hypoglycemia. - Check your blood sugar levels, especially after exercise. - Report any new symptoms like chest pain, shortness of breath, or changes in exercise tolerance. - Maintain healthy lifestyle habits and monitor for hypoglycemic symptoms. - Follow up in one year or sooner if you notice any concerning symptoms. Coding Level of Care Code Est Pt Level 4 (97005) Diagnoses Atherosclerotic cardiovascular disease I25.10 Type 2 diabetes mellitus with unspecified complications E11.8 Essential hypertension I10 CPT Codes EKG - CPT: 40324-Furvovvxuhscjsjzr, Complete ([id number])
[2024-07-01 08:15] VITALS: BP 110/60; PULSE 50; BMI 26.7
== END 2024-07-01 09:21 | disposition home or self-care (01) ==
LOC: HO.HCS 08:04
PROVIDERS: PCP Internal Medicine; Visit Provider Internal Medicine
DX: I25.10 Atherosclerotic heart disease of native coronary artery without angina pectoris (principal); E11.8 Type 2 diabetes mellitus with unspecified complications; I10 Essential (primary) hypertension
CPT/HCPCS: 93010; 99214

== ENCOUNTER → 2024-07-01 08:03 | Outpatient (BNVA) | payer OTHER, SELFPAY | PROVIDERS: PCP Internal Medicine; Visit Provider Internal Medicine | DX: I25.10 Atherosclerotic heart disease of native coronary artery without angina pectoris (principal); I10 Essential (primary) hypertension; E11.8 Type 2 diabetes mellitus with unspecified complications; I45.19 Other right bundle-branch block; R00.1 Bradycardia, unspecified | CPT/HCPCS: 93005; 99212 ==

== ENCOUNTER 2024-07-18 12:44 | Outpatient (REF) | payer OTHER, SELFPAY ==
[2024-07-18 14:45] LABS: Estimated Average Glucose 146 mg/dL; Hemoglobin A1C 155.5513 umol/L; Hemoglobin A1c % 6.7 % (<6.0); Total Hemoglobin (HGBA1C) 3115.9096 umol/L
[2024-07-18 14:48] LABS: Alanine Aminotransferase 28 U/L (0-40); Anion Gap 10 (12-20); Aspartate Amino Transferase 34 U/L (5-37); Blood Urea Nitrogen 15 mg/dL (9-16); Calcium 9.2 mg/dL (8.4-10.2); Carbon Dioxide 25 mmol/L (22-29); Chloride 108 mmol/L (96-108); Cholesterol 93 mg/dL (<200); Estimated Glomerular Filt Rate > 60; Glucose Random 117 mg/dL (60-115); HDL Cholesterol 52 mg/dL (>40); LDL Cholesterol Calculated 34 mg/dL (<100); Potassium 4.8 mmol/L (3.3-5.1); Sodium 138 mmol/L (135-145); Triglycerides 39 mg/dL (<150)
[2024-07-18 15:24] LABS: Creatinine Urine 46.61 mg/dL
== END 2024-07-18 12:45 | disposition home or self-care (01) ==
LOC: HO.CHCLDS 12:44
PROVIDERS: Absent Provider Physician Assistant; PCP Internal Medicine; Visit Provider Internal Medicine
DX: E11.42 Type 2 diabetes mellitus with diabetic polyneuropathy (principal)
CPT/HCPCS: 36415; 80048; 80061; 82043; 82570; 83036; 84450; 84460

== ENCOUNTER 2024-08-22 13:39 | Outpatient (REF) | payer OTHER, SELFPAY ==
--- NOTE | ~2024-08-22 | XR_ITS ---
EXAMINATION: XR CHEST CLINICAL INFORMATION: worsening cough/sputum > one week COMPARISON: None available. TECHNIQUE: 2 views of the chest were obtained. FINDINGS: Heart and mediastinal contours are within normal limits. There is minimal linear density just above the left hemidiaphragm. There is no blunting of the costophrenic angles. Disc space narrowing, endplate sclerosis and osteophytes are evident in the thoracic spine. XR/XR chest 2V IMPRESSION: Minimal subsegmental atelectasis in the left lung base. Electronically signed by: Ray Abrams MD 08/22/2024 01:55 PM EDT
--- OUTSIDE RECORDS SUMMARY | 2024-08-22 13:42 | XMS_ITS | Encounter Summary ---
Author Organization [employer] Address [address] [place] [address] [place] [address] Care Team Providers Care Set Up And Charger Name Role Phone Olesya Diaz MD Primary Care Provider [phone]- [phone] Encounter Details Date Type Department Care Team (Late st Contact Info) Description 01/16/2023 Abstract [facility] [address] [place], [place] [phone] Chitra Brooks DDS [address] [place] [address] Social History Tobacco Use Types Packs/Day Years [...] Care Team (Late st Contact Info) Description 08/27/2024 1:30 PM EDT Office Visit [facility] [address] [place] [address] Catrachita Correa DDS [address] [place] [address] 09/02/2024 1:00 PM EDT Office Visit [facility] [address] [place] [address] Lewis Negro [address] [place] [address] 09/16/2024 1:30 PM EDT Clinical Support [facility] [address] [place] [address] Ramila Montiel, SURJIT [address] [place] [address] documented as of this encounter Visit Diagnoses Not on filedocumented in this encounter Care Teams Set Up And Charger Relationship Specialty Start Date End Date Olesya Diaz MD [address] [place] [address] PCP - General Internal Medicine 03/05/18 documented as of this encounter
== END 2024-08-22 13:40 | disposition home or self-care (01) ==
LOC: HO.HHCX 13:39
PROVIDERS: Visit Provider Family Medicine
DX: J40 Bronchitis, not specified as acute or chronic (principal)
CPT/HCPCS: 71046

== ENCOUNTER → 2024-08-22 13:40 | Outpatient (BNV) | payer OTHER, SELFPAY | PROVIDERS: Visit Provider Radiology Diagnostic Radiology | DX: J98.11 Atelectasis (principal) | CPT/HCPCS: 71046 ==